=== PATIENT | female | born 1960 | race African-American/Black ===

== ENCOUNTER 2017-08-30 18:53 | Inpatient (IN) | payer OTHER ==
[~2017-08-30] VITALS: Ht 167.6 cm; Wt 67.0 kg
[2017-08-30 18:58] VITALS: Ht 167.6 cm; Wt 67.0 kg
[2017-08-30] MEDS ORDERED: SOD CHLORIDE 0.9% 1,000 ML IV STA ×2 (20:30→21:08)
[2017-08-30 20:54] VITALS: TEMP 97
[2017-08-30 21:07] LABS: BASOPHIL # 0.1 10^3/ul (0.0-0.1); BASOPHILS % 0.6 % (0.0-2.0); EOSINOPHILS # 0.5 10^3/ul (0.0-0.5); EOSINOPHILS % 4.6 % (0.0-7.0); HEMATOCRIT 33.2 % (37.0-47.0); HEMOGLOBIN 11.7 g/dl (12.0-16.0); LYMPHOCYTES # 3.1 10^3/ul (0.8-2.9); LYMPHOCYTES % 31.1 % (15.0-51.0); MEAN CORPUSCULAR HEMOGLOBIN 35.3 pg (29.0-33.0); MEAN CORPUSCULAR HGB CONC 35.2 g/dl (32.0-37.0); MEAN CORPUSCULAR VOLUME 100.3 fl (82.0-101.0); MEAN PLATELET VOLUME 9.6 fl (7.4-10.4); MONOCYTE # 0.4 10^3/ul (0.3-0.9); MONOCYTES % 4.5 % (0.0-11.0); NEUTROPHIL # 5.8 10^3/ul (1.6-7.5); NEUTROPHILS % 58.9 % (39.0-77.0); PLATELET COUNT 225 10^3/UL (140-415); RED BLOOD COUNT 3.31 10^6/ul (4.20-5.40); RED CELL DISTRIBUTION WIDTH 11.6 % (11.5-14.5); WHITE BLOOD COUNT 9.8 10^3/ul (4.8-10.8)
[2017-08-30 21:16] LABS: ADD UMIC YES; UR ASCORBIC ACID NEGATIVE (NEGATIVE); UR BACTERIA FEW /HPF (NONE SEEN); UR BILIRUBIN (Dip) NEGATIVE (NEGATIVE); UR BLOOD (Dip) NEGATIVE (NEGATIVE); UR CLARITY CLOUDY (CLEAR); UR COLOR YELLOW (YELLOW); UR GLUCOSE (Dip) NEGATIVE (NEGATIVE); UR KETONES (Dip) NEGATIVE (NEGATIVE); UR LEUKOCYTE ESTERASE (Dip) TRACE Leu/ul (NEGATIVE); UR MUCUS FEW /HPF (NONE SEEN); UR NITRITE (Dip) NEGATIVE (NEGATIVE); UR RBC 1 /HPF (0-5); UR SPECIFIC GRAVITY (Dip) 1.017 (1.003-1.030); UR SQUAMOUS EPITHELIAL CELL MODERATE /HPF (FEW); UR TOTAL PROTEIN (Dip) 1+ mg/dl (NEGATIVE); UR UROBILINOGEN (Dip) 1+ mg/dL (NEGATIVE)
[2017-08-30 21:23] LABS: ANION GAP 15 (8-16); BLOOD UREA NITROGEN 53 mg/dl (7-20); CALCIUM 9.8 mg/dl (8.4-10.2); CARBON DIOXIDE 21 mmol/L (21-31); CHLORIDE 108 mmol/L (97-110); CREATININE 2.55 mg/dl (0.44-1.00); GLUCOSE 89 mg/dl (70-220); POTASSIUM 3.6 mmol/L (3.5-5.1); SODIUM 140 mmol/L (135-144)
[2017-08-30 21:29] LABS: BARBITURATES Negative (NEGATIVE); BENZODIAZEPINES Negative (NEGATIVE); CANNABINOIDS Positive (NEGATIVE)
[2017-08-30 21:30] LABS: COCAINE Negative (NEGATIVE); OPIATES Negative (NEGATIVE)
--- NOTE | 2017-08-30 21:30 | RADRPT ---
PROCEDURE: Noncontrast CT Head. CLINICAL INDICATION: Possible stroke. Dizzy. TECHNIQUE: Noncontrast CT of the head was obtained. The administered radiation dose was CTDI vol = 44.58 mGy, DLP = 720.23 mGy-cm. One or more of the following dose reduction techniques were used: Au tomated exposure control, Adjustment of the mA and/or kV according to patient size, or Use of iterat valerio reconstruction technique. COMPARISON: There are no similar studies submitted for comparison. FINDINGS: There is no acute intracranial hemorrhage, midline shift, or mass effect. The cerebral hassan-white ma tter differentiation appears preserved. No extra-axial collection is seen. There is mild to moderate diffuse cerebral volume loss. There is Patchy low attenuation scattered in the periventricular, pradip p, and subcortical cerebral white matter is nonspecific, but suggestive of mild to moderate chronic microangiopathic change. The basal cisterns are preserved. There is intracranial calcific atheroscle rotic disease involving the internal carotid arteries bilaterally. There is mild diffuse cerebellar volume loss. The visualized paranasal sinuses and mastoid air cells are clear. No acute fracture or suspicious osseous lesion is identified. Cerumen, debris, and / or soft tissue is seen within the ex ternal auditory canals bilaterally. IMPRESSION: 1. No evidence of an acute intracranial process. 2. Mild to moderate diffuse cerebral and mild diffuse cerebellar volume loss. 3. Evidence of mild to moderate chronic microangiopathic cerebral white matter change. 4. Intracranial calcific atherosclerotic disease. RPTAT: [facility] Physician Constance Date Time Electronically viewed and signed by Physician Constance on 08/30/2017 21:30 LINETTE/
[2017-08-30 21:35] LABS: TROPONIN-I < 0.012 ng/ml (0.00-0.12)
[2017-08-30] MEDS ORDERED: LANS15CA5 PO (21:47)
[2017-08-30] MEDS ORDERED: HYDR12.58 PO (21:47)
[2017-08-30] MEDS ORDERED: CYCL5TAB PO (21:48)
[2017-08-30 21:55] LABS: INR 1.06; PROTIME 13.8 Sec (12.2-14.2); PT RATIO 1.1
[2017-08-30 21:56] LABS: PARTIAL THROMBOPLASTIN TIME 34.9 Sec (25.0-35.0)
[2017-08-30] MEDS ORDERED: MECLIZINE 12.5 MG TAB PO ONE (22:00)
--- NOTE | 2017-08-30 22:10 | RADRPT ---
PROCEDURE: XR Chest. CLINICAL INDICATION: Weakness. TECHNIQUE: Single frontal chest x-ray. COMPARISON: None. FINDINGS: The cardiomediastinal silhouette is unremarkable. There is no congestive heart failure.. No focal i nfiltrate is seen. There is no pleural effusion. There is no pneumothorax. The osseous structures are unremarkable. IMPRESSION: 1. No active disease. RPTAT: [facility] .Joe Melissa MD, Date Time Electronically viewed and signed by .Joe Melissa MD, MD on 08/30/2017 22:10 .K/
[2017-08-30] MEDS ORDERED: ONDANSETRON 4 MG INJ IV PRN (23:00)
[2017-08-30] MEDS ORDERED: ACETAMINOPHEN 325 MG TAB PO PRN (23:00)
--- NOTE | 2017-08-30 23:08 | ERA ---
ER Documentation Chief Complaint Date/Time DATE: 08/30/17 TIME: 23:05 Chief Complaint dizziness x 2 weeks, hypotensive HPI Patient is a 57-year-old female with hypertension who presents with dizziness. She said that for the past 2 weeks she is felt dizzy and felt like she was getting up too fast. It is worse when she stands up. She made a doctor's appointment. However this evening she got up and felt woozy and felt like the room was spinning and then fell to the ground. She denies passing out. She denies chest pain or headache. She said that she has had vomiting and diarrhea over the past 1 month. Upon review of old medical records this is the patient' s first visit to the emergency department. ROS All systems reviewed and are negative except as per history of present illness. Medications Home Meds Reported Medications Cyclobenzaprine Hcl* (Cyclobenzaprine Hcl*) 5 Mg Tablet, 7.5 MG PO Q12 Y for MUSCLE SPASMS, #60 TAB 08/30/17 Lansoprazole* (Lansoprazole*) 15 Mg Capsule.dr, 15 MG PO DAILY, CAP 08/30/17 Hydrochlorothiazide* (Hydrochlorothiazide*) 12.5 Mg Tablet, 12.5 MG PO DAILY, # 30 TAB 08/30/17 Allergies Allergies: Coded Allergies: No Known Allergy (Unverified , 08/30/17) PMhx/Soc History of Surgery: No Anesthesia Reaction: No Hx Neurological Disorder: No Hx Respiratory Disorders: No Hx Cardiac Disorders: Yes (HTN) Hx Psychiatric Problems: No Hx Miscellaneous Medical Probl: Yes (GERD) Hx Alcohol Use: No Hx Substance Use: No Hx Tobacco Use: Yes (6cig/day) Smoking Status: Light tobacco smoker FmHx Family History: No diabetes Physical Exam Vitals Vital Signs Date Time Temp Pulse Resp B/P Pulse Ox O2 Delivery O2 Flow Rate FiO2 08/30/17 20:54 97.0 62 22 76/37 100 Room Air 08/30/17 18:58 97.0 76 20 94/42 94 Physical Exam Const: No acute distress Head: Atraumatic Eyes: Normal Conjunctiva ENT: Normal External Ears, Nose and Mouth. Neck: Full range of motion..~ No meningismus. Resp: Clear to auscultation bilaterally Cardio: Regular rate and rhythm, no murmurs Abd: Soft, non tender, non distended. Normal bowel sounds Skin: No petechiae or rashes Back: No midline or flank tenderness Ext: No cyanosis, or edema Neur: Awake and alert, cranial nerves II through XII intact, strength is 5 out of 5 in all 4 extremities Psych: Normal Mood and Affect Result Diagram: 08/30/17204808/30/172048 Results 24 hrs Laboratory Tests Test 08/30/17 19:35 08/30/17 20:23 08/30/17 20:35 08/30/17 20:49 Urine Color YELLOW Urine Clarity CLOUDY Urine pH 5.0 Urine Specific [place] 1.017 Urine Ketones NEGATIVEmg/dL Urine Nitrite NEGATIVEmg/dL Urine Bilirubin NEGATIVEmg/dL Urine Urobilinogen 1+mg/dL Urine Leukocyte Esterase TRACELeu/ul Urine Microscopic RBC 1/HPF Urine Microscopic WBC 5/HPF Urine Squamous Epithelial Cells MODERATE/HPF Urine Bacteria FEW/HPF Urine Hyaline Casts FEW/HPF Urine Mucus FEW/HPF Urine Hemoglobin NEGATIVEmg/dL Urine Glucose NEGATIVEmg/dL Urine Total Protein 1+mg/dl Urine Opiates Screen Negative Urine Barbiturates Negative Urine Amphetamines Screen Negative Urine Benzodiazepines Screen Negative Urine Cocaine Screen Negative Urine Cannabinoids Positive Hemoglobin A1c 4.8% White Blood Count 9.810^3/ul Red Blood Count 3.3110^6/ul Hemoglobin 11.7g/dl Hematocrit 33.2% Mean Corpuscular Volume 100.3fl Mean Corpuscular Hemoglobin 35.3pg Mean Corpuscular Hemoglobin Concent 35.2g/dl Red Cell Distribution Width 11.6% Platelet Count 35067^3/UL Mean Platelet Volume 9.6fl Neutrophils % 58.9% Lymphocytes % 31.1% Monocytes % 4.5% Eosinophils % 4.6% Basophils % 0.6% Nucleated Red Blood Cells % 0.0/100WBC Neutrophils # 5.810^3/ul Lymphocytes # 3.110^3/ul Monocytes # 0.410^3/ul Eosinophils # 0.510^3/ul Basophils # 0.110^3/ul Nucleated Red Blood Cells # 0.010^3/ul Prothrombin Time 13.8Sec Prothrombin Time Ratio 1.1 INR International Normalized Ratio 1.06 Activated Partial Thromboplast Time 34.9Sec Sodium Level 140mmol/L Potassium Level 3.6mmol/L Chloride Level 108mmol/L Carbon Dioxide Level 21mmol/L Anion Gap 15 Blood Urea Nitrogen 53mg/dl Creatinine 2.55mg/dl Glucose Level 89mg/dl Calcium Level 9.8mg/dl Troponin I < 0.012ng/ml Current Medications Medications (Trade) Dose Ordered Sig/Ebony Route PRN Reason Start Time Stop Time Status Last Admin Dose Admin Sodium Chloride 1,000 ml @ 1,000 mls/hr Q1H STAT IV 08/30/17 20:30 08/30/17 21:29 DC 08/30/17 20:52 Sodium Chloride (NS) 1,000 ml @ 1,000 mls/hr Q1H STAT IV 08/30/17 21:08 08/30/17 22:07 DC 08/30/17 21:35 Meclizine HCl (Antivert) 25 mg ONCE ONCE PO 08/30/17 22:00 08/30/17 22:01 DC 08/30/17 22:19 Ondansetron HCl (Zofran Inj) 4 mg BRIDGE ORDER PRN IV NAUSEA AND/OR VOMITING 08/30/17 23:00 08/31/17 22:59 Acetaminophen (Tylenol Tab) 650 mg ER BRIDGE PRN PO MILD PAIN/FEVER 08/30/17 23:00 08/31/17 22:59 Procedures/MDM EKG read by me: Rate/Rhythm: Sinus bradycardia rate of 59 Intervals: Normal Impression: Sinus bradycardia without ischemia CT brain shows no acute process per radiology. Chest x-ray shows no pneumonia or pneumothorax per radiology. Smoking Cessation Therapy: Pt. was lectured for greater than 3 minutes on the health risks of continued smoking and the benefits of cessation. Patient is a 57-year-old female with hypertension who presents with dizziness and hypotension. She was given 2 L of fluid and her blood pressure has improved. However she was found to have acute renal failure with a BUN of 53 and a creatinine of 2.55. She said that she has no history of kidney failure and therefore I am concerned for acute renal failure. She likely has renal failure from dehydration from vomiting and diarrhea. She will need admission to the hospital for further evaluation for the cause of her renal failure. She has anemia with a hemoglobin of 11.7 but does not require transfusion. I doubt sepsis. I doubt stroke or acute coronary syndrome. Critical Care: Time: 35 minutes excluding all billable procedures. Treatments/Evaluations: Close monitoring and treatment of unstable vital signs, cardiorespiratory, and neurologic status, while maintaining tight balance of fluid, respiratory, and cardiac interventions. Departure Diagnosis: Primary Impression: Acute renal failure Qualified Code: N17.9 - Acute renal failure, unspecified acute renal failure type Additional Impressions: Dizziness Hypotension Qualified Code: I95.9 - Hypotension, unspecified hypotension type Condition: OSCAR Luu MD Aug 30, 2017 23:08
[2017-08-31] MEDS ORDERED: ACETAMINOPHEN 325 MG TAB PO PRN
[2017-08-31] MEDS ORDERED: ONDANSETRON 4 MG INJ IV PRN
[2017-08-31] MEDS ORDERED: NACL 0.9% 3 ML SYG IV SCH
[2017-08-31] MEDS: CEFTRIAXONE 1 GM/50 ML (PMX) 50 ML IVPB SCH (00:07)
[2017-08-31] MEDS: SOD CHLORIDE 0.9% 1,000 ML IV SCH ×3 (00:07→19:36)
[2017-08-31 00:45] VITALS: BP 94/44; PULSE 60; RESP 18
[2017-08-31 01:39] LABS: CHOL/HDL RATIO 4.8 RATIO
[2017-08-31] MEDS ORDERED: SOD CHLORIDE 0.9% 1,000 ML IV ONE (02:30)
--- NOTE | 2017-08-31 02:39 | HP ---
Date/Time of Note Date/Time of Note DATE: 08/31/17 TIME: 02:12 Assessment/Plan VTE Prophylaxis VTE Prophylaxis Intervention: SCD's Lines/Catheters IV [facility]from [facility] Peripheral IV Assessment/Plan Chief Complaint/Hosp Course This is a 57 year old female being admitted to the telemetry floor for: #1 Hypotension: secondary to dehydration from chronic diarrhea vs. unknown infection vs. other etiology. Currently afebrile. Elevated BUN/Cr likely Pre- renal in etiology. 2 liters of Normal saline received in the ED. On my exam patient has dry mucous membranes. I will give her an additional 1L of normal saline as well as keep her on NS@100cc and hour maintenance fluids. Will hold her HCTZ for now. She does have a UTI and chronic diarrhea, will monitor closely for continued hypotension and any fevers or other signs indicating possible sepsis. #2 Acute renal failure: No baseline renal function available, but patient denies any prior renal issues. Likely Pre-renal. Will provide iv fluid hydration as per #1. Check urine microscope, renal ultrasound, urine sodium, and will consult nephrology. Will hold HCTZ. #3 Chronic Diarrhea: Afebrile. This is chronic and patient has an appointment with a GI doctor as an outpatient on the 12th of this month. No fevers or elevated wbc count at this time. Nonetheless secondary to her hypotension, I will order some stool studies at this time. She does have pain above the umbilical area.. I will add on a lipase as well and a CMP.. Will add on a KUB for this morning. Consider CT of the abdomen with contrast if renal function returns to normal. Will keep her NPO except meds for now. Will also check a1c and thyroid. Urine drug screen was positive for marijuana, unknown if this could be contributing. #4 HTN: currently hypotensive, will hold HCTZ at this time. #5 Normocytic anemia: will check iron studies. Denies any bleeding. Will check fecal occult stool #6 UTI: ceftriaxone 1 gm IV q 24hrs #7 Dvt and GI prophylaxis. scds, acid pamela further treatment strategy will be implemented as per the clinical course. Problems: HPI/ROS Admit Date/Time Admit Date/Time Aug 30, 2017 at 22:38 Hx of Present Illness cc: dizzy Patient is a 57-year-old female with hypertension who presents with dizziness. She said that for the past few weeks she is felt dizzy and felt like she was getting up too fast. It is worse when she stands up. She made a doctor's appointment. However this evening she got up and felt woozy and felt like the room was spinning and then fell to the ground. She denies passing out and denies hitting her head. She denies chest pain or headache. She said that she has had vomiting and diarrhea over the past 1 month. She states she has had a chronic diarrhea for the past 2 years. Her primary care doctor did a stool study in february and found "a bug" and she took a set of antibiotics for a few weeks. She has an appointment with a GI doctor on 09/04 scheduled. Denies any fevers or shortness of breath. Denies any blood stool or vomitus. No recent travel. Denies any issues with dairy products. She does report acid reflux from citrus foods so she avoids them and she also doesn't eat spicy or fried foods. allergies: nkda meds: see miguel JOE Const: As per HPI Eyes : No pain discharge or redness or change in visual acuity ENT: No pain, sore throat, congestion, congestion, dysphagia or discharge Respiratory: No shortness of breath, cough, sputum, wheezing, or pleuritic pain Cardiovascular: No chest pain, palpitation, PND, or edema GI : As per HPI Genitourinary: Urinary frequency, urinary urgency Musculoskeletal: No joint pain, back pain, neck pain, restricted range of motion in neck or joints Skin: No rash, bruising or hives Neuro: As per HPI Endocrine: No polyuria, polydipsia, temperature intolerance Psych: No hallucination, depression, anxiety or suicidal ideation PMH/Family/Social Past Medical History Chronic diarrhea - unknown etiology, HTN, reflux Past Surgical History x 1 Past Surgical Hx: cholecystectomy Family History Significant Family History: hypertension (mom) Social History Alcohol Use: occasionally Smoking Status: Current every day smoker (5 cigs a day for 30 years) Drug Use: none Exam/Review of Systems Vital Signs Vitals Vital Signs Date Time Temp Pulse Resp B/P Pulse Ox O2 Delivery O2 Flow Rate FiO2 08/31/17 00:45 98.0 60 18 94/44 100 08/31/17 00:10 Room Air Exam Exam General: Patient is well-developed well-nourished The patient is alert oriented -3 lying comfortably in bed. HEENT: Dry mucous membranes, atraumatic, normocephalic. The pupils are equal, round and reactive. Extraocular motor are intact Neck: Supple with full range of motion. No rigidity or meningismus Chest: Nontender Lungs: Clear to auscultation bilaterally no crackles rales or wheezing Heart: Normal S1-S2, Regular rhythm and rate. No murmur, S3, or S4 Abdomen: Soft, nondistended, tender to palpation at the region above the umbilicus, normal bowel sounds, no rebound tenderness Extremities: Normal to inspection, no edema no cyanosis Neurologic: Normal mental status, speech normal, cranial nerves II through XII are intact, motor and sensory are intact, no focal weakness Additional Comments PROCEDURE: Noncontrast CT Head. CLINICAL INDICATION: Possible stroke. Dizzy. TECHNIQUE: Noncontrast CT of the head was obtained. The administered radiation dose was CTDI vol = 44.58 mGy, DLP = 720.23 mGy-cm. One or more of the following dose reduction techniques were used: Automated exposure control, Adjustment of the mA and/or kV according to patient size, or Use of iterative reconstruction technique. COMPARISON: There are no similar studies submitted for comparison. FINDINGS: There is no acute intracranial hemorrhage, midline shift, or mass effect. The cerebral hassan-white matter differentiation appears preserved. No extra-axial collection is seen. There is mild to moderate diffuse cerebral volume loss. There is Patchy low attenuation scattered in the periventricular, deep, and subcortical cerebral white matter is nonspecific, but suggestive of mild to moderate chronic microangiopathic change. The basal cisterns are preserved. There is intracranial calcific atherosclerotic disease involving the internal carotid arteries bilaterally. There is mild diffuse cerebellar volume loss. The visualized paranasal sinuses and mastoid air cells are clear. No acute fracture or suspicious osseous lesion is identified. Cerumen, debris, and / or soft tissue is seen within the external auditory canals bilaterally. IMPRESSION: 1. No evidence of an acute intracranial process. 2. Mild to moderate diffuse cerebral and mild diffuse cerebellar volume loss. 3. Evidence of mild to moderate chronic microangiopathic cerebral white matter change. 4. Intracranial calcific atherosclerotic disease. RPTAT: [facility] Physician Constance Date Time Electronically viewed and signed by Physician Constance on 08/30/2017 21: 30 RC/ CC: OSCAR FERNANDO MD PROCEDURE: XR Chest. CLINICAL INDICATION: Weakness. TECHNIQUE: Single frontal chest x-ray. COMPARISON: None. FINDINGS: The cardiomediastinal silhouette is unremarkable. There is no congestive heart failure.. No focal infiltrate is seen. There is no pleural effusion. There is no pneumothorax. The osseous structures are unremarkable. IMPRESSION: 1. No active disease. RPTAT: [facility] .Joe Melissa MD, Date Time Electronically viewed and signed by .Joe Melissa MD, on 08/30/2017 22:10 .K/ CC: OSCAR FERNANDO MD Labs Result Diagram: 08/30/17204808/30/172048 Medications Medications Current Medications Sodium Chloride (NS) 1,000 ml @ 100 mls/hr Q10H IV Last administered on 00:07; Admin Dose 100 MLS/HR; Start 08/30/17 at 23:36 Ondansetron HCl (Zofran Inj) 4 mg Q6H PRN IV NAUSEA AND/OR VOMITING; Start 08/31/17 at 00:00 Acetaminophen (Tylenol Tab) 650 mg Q6H PRN PO PAIN LEVEL 1-3 OR FEVER; Start 08/31/17 at 00:00 Famotidine 20 mg 20 mg DAILY PO ; Start 08/31/17 at 09:00 Ceftriaxone Sodium (Rocephin) 50 ml @ 100 mls/hr Q24H IVPB Last administered on 08/31/17 00:07; Admin Dose 100 MLS/HR; Start 08/31/17 at 00:00 Influenza Virus Vaccine 0.5 ml 0.5 ml ONCE ONCE IM* ; Start 09/01/17 at 09:00; Stop 09/01/17 at 09:01 Sodium Chloride (NS) 1,000 ml @ 1,000 mls/hr Q1H ONCE IV ; Start 08/31/17 at 02 :30; Stop 08/31/17 at 03:29; Status CONCEPCION DELVALLE Aug 31, 2017 02:25
[2017-08-31 04:00] VITALS: BP 95/42; PULSE 62
[2017-08-31 05:40] LABS: BASOPHILS % 0.5 % (0.0-2.0); EOSINOPHILS # 0.4 10^3/ul (0.0-0.5); EOSINOPHILS % 5.6 % (0.0-7.0); HEMATOCRIT 26.1 % (37.0-47.0); HEMOGLOBIN 9.3 g/dl (12.0-16.0); LYMPHOCYTES # 2.2 10^3/ul (0.8-2.9); LYMPHOCYTES % 35.5 % (15.0-51.0); MEAN CORPUSCULAR HEMOGLOBIN 35.4 pg (29.0-33.0); MEAN CORPUSCULAR HGB CONC 35.6 g/dl (32.0-37.0); MEAN CORPUSCULAR VOLUME 99.2 fl (82.0-101.0); MEAN PLATELET VOLUME 9.7 fl (7.4-10.4); MONOCYTE # 0.2 10^3/ul (0.3-0.9); MONOCYTES % 3.9 % (0.0-11.0); NEUTROPHIL # 3.4 10^3/ul (1.6-7.5); NEUTROPHILS % 54.2 % (39.0-77.0); PLATELET COUNT 194 10^3/UL (140-415); RED BLOOD COUNT 2.63 10^6/ul (4.20-5.40); RED CELL DISTRIBUTION WIDTH 11.7 % (11.5-14.5); WHITE BLOOD COUNT 6.2 10^3/ul (4.8-10.8)
[2017-08-31 06:06] LABS: ALBUMIN 2.8 g/dl (3.3-4.9); BILIRUBIN,INDIRECT 0.2 mg/dl (0-1.1); BILIRUBIN,TOTAL 0.2 mg/dl (0.2-1.3); CREATININE 1.42 mg/dl (0.44-1.00); MAGNESIUM 1.4 mg/dl (1.7-2.5); POTASSIUM 3.6 mmol/L (3.5-5.1); TOTAL PROTEIN 5.6 g/dl (6.1-8.1)
[2017-08-31 06:08] LABS: IRON 64 ug/dl (35-150)
[2017-08-31 06:17] LABS: TOTAL IRON BINDING CAPACITY 262 ug/dl (241-421)
--- NOTE | 2017-08-31 08:55 | RADRPT ---
PROCEDURE: Renal US. CLINICAL INDICATION: Renal failure TECHNIQUE: Multiple sonographic images of the kidneys were obtained. COMPARISON: No prior studies are available for comparison. FINDINGS: The kidneys are well visualized. The right kidney measures 10.7 cm. The left kidney measures 10.6 cm . Normal renal cortical echogenicity. No evidence of shadowing renal calculi. No hydronephrosis. No rmal appearance of the urinary bladder. IMPRESSION: Normal renal ultrasound. RPTAT:[facility] Physician Cornelius Date Time Electronically viewed and signed by Physician Cornelius on 08/31/2017 08:55 /
--- NOTE | 2017-08-31 08:57 | RADRPT ---
PROCEDURE: XR Abdomen. CLINICAL INDICATION: Abdominal pain. Diarrhea. TECHNIQUE: AP abdomen x-ray. COMPARISON: None. FINDINGS: Lung bases are clear. The bowel gas pattern is normal. There is no evidence of obstruction. Normal colonic stool burden. There are no abnormal calcifications overlying the renal shadows. Degenerativ e changes of the spine. Round 4.1 cm calcification over the left pelvis likely representing a calcif ied fibroid. IMPRESSION: No acute abdominal radiograph abnormality. Probable 4.1 cm calcified fibroid over the left pelvis. RPTAT:AA[facility] Physician Cornelius Date Time Electronically viewed and signed by Physician Cornelius on 08/31/2017 08:57 /
[2017-08-31] MEDS: FAMOTIDINE 20 MG TAB PO SCH (09:02)
[2017-08-31] MEDS: NICOTINE (14 MG/24 HR) PATCH TRANSDERM SCH (09:02)
[2017-08-31 10:45] VITALS: BP 106/56; RESP 20
--- NOTE | 2017-08-31 10:47 | CONS ---
Date/Time of Note Date/Time of Note DATE: 08/31/17 TIME: 10:42 Consultation Date/Type/Reason Admit Date/Time Aug 30, 2017 at 22:38 Date of Consultation: Aug 31, 2017 Type of Consultation: nephrology Hx of Present Illness cc: dizzy Patient is a 57-year-old female with hypertension who presents with dizziness. She said that for the past few weeks she is felt dizzy and felt like she was getting up too fast. It is worse when she stands up. She made a doctor's appointment. However this evening she got up and felt woozy and felt like the room was spinning and then fell to the ground. She denies passing out and denies hitting her head. She denies chest pain or headache. She said that she has had vomiting and diarrhea over the past 1 month. She states she has had a chronic diarrhea for the past 3 years. Her primary care doctor did a stool study in february and found "a bug" and she took a set of antibiotics for a few weeks. She has an appointment with a GI doctor on 09/04 scheduled. Denies any fevers or shortness of breath. Denies any blood stool or vomitus. No recent travel. Denies any issues with dairy products. She does report acid reflux from citrus foods so she avoids them and she also doesn't eat spicy or fried foods. Her serum chemistry showed arf which is improving with ivf UA was remarkable for pyuria for which she is on abx has good uop since admission to the hospital denies any previous renal issues allergies: nkda meds: see miguel ROS Const: As per HPI Eyes : No pain discharge or redness or change in visual acuity ENT: No pain, sore throat, congestion, congestion, dysphagia or discharge Respiratory: No shortness of breath, cough, sputum, wheezing, or pleuritic pain Cardiovascular: No chest pain, palpitation, PND, or edema GI : As per HPI Genitourinary: Urinary frequency, urinary urgency Musculoskeletal: No joint pain, back pain, neck pain, restricted range of motion in neck or joints Skin: No rash, bruising or hives Neuro: As per HPI Endocrine: No polyuria, polydipsia, temperature intolerance Psych: No hallucination, depression, anxiety or suicidal ideation PMH/Family/Social Past Medical History Chronic diarrhea - unknown etiology, HTN, reflux Past Surgical History x 1 Past Surgical Hx: cholecystectomy Family History Significant Family History: hypertension (mom) Social History Alcohol Use: occasionally Smoking Status: Current every day smoker (5 cigs a day for 30 years) Drug Use: none Exam/Review of Systems General: Patient is well-developed well-nourished The patient is alert oriented -3 lying comfortably in bed. HEENT: Dry mucous membranes, atraumatic, normocephalic. The pupils are equal, round and reactive. Extraocular motor are intact Neck: Supple with full range of motion. No rigidity or meningismus Chest: Nontender Lungs: Clear to auscultation bilaterally no crackles rales or wheezing Heart: Normal S1-S2, Regular rhythm and rate. No murmur, S3, or S4 Abdomen: Soft, nondistended, tender to palpation at the region above the umbilicus, normal bowel sounds, no rebound tenderness Extremities: Normal to inspection, no edema no cyanosis Neurologic: Normal mental status, speech normal, cranial nerves II through XII are intact, motor and sensory are intact, no focal weakness Additional Comments PROCEDURE: Noncontrast CT Head. CLINICAL INDICATION: Possible stroke. Dizzy. TECHNIQUE: Noncontrast CT of the head was obtained. The administered radiation dose was CTDI vol = 44.58 mGy, DLP = 720.23 mGy-cm. One or more of the following dose reduction techniques were used: Automated exposure control, Adjustment of the mA and/or kV according to patient size, or Use of iterative reconstruction technique. COMPARISON: There are no similar studies submitted for comparison. FINDINGS: There is no acute intracranial hemorrhage, midline shift, or mass effect. The cerebral hassan-white matter differentiation appears preserved. No extra-axial collection is seen. There is mild to moderate diffuse cerebral volume loss. There is Patchy low attenuation scattered in the periventricular, deep, and subcortical cerebral white matter is nonspecific, but suggestive of mild to moderate chronic microangiopathic change. The basal cisterns are preserved. There is intracranial calcific atherosclerotic disease involving the internal carotid arteries bilaterally. There is mild diffuse cerebellar volume loss. The visualized paranasal sinuses and mastoid air cells are clear. No acute fracture or suspicious osseous lesion is identified. Cerumen, debris, and / or soft tissue is seen within the external auditory canals bilaterally. IMPRESSION: 1. No evidence of an acute intracranial process. 2. Mild to moderate diffuse cerebral and mild diffuse cerebellar volume loss. 3. Evidence of mild to moderate chronic microangiopathic cerebral white matter change. 4. Intracranial calcific atherosclerotic disease. PROCEDURE: XR Chest. CLINICAL INDICATION: Weakness. TECHNIQUE: Single frontal chest x-ray. COMPARISON: None. FINDINGS: The cardiomediastinal silhouette is unremarkable. There is no congestive heart failure.. No focal infiltrate is seen. There is no pleural effusion. There is no pneumothorax. The osseous structures are unremarkable. IMPRESSION: 1. No active disease. This is a 57 year old female being admitted to the telemetry floor for: #1 Acute renal failure: No baseline renal function available, but patient denies any prior renal issues. most likely due to intravascular volume depletion due to hctz and diarrhea, She has good uop with ivf. will continue. Some proteinuria noted on her UA however she has uti and therefore urine studies are not reliable. will repeat. will optimize her intravascular volume status by infusion isotonic saline. #2 Hypotension: secondary to dehydration from chronic diarrhea vs. UTI. #3 Chronic Diarrhea #4 HTN: currently hypotensive, will hold HCTZ at this time. #5 Normocytic anemia: will check iron studies. Denies any bleeding. Will check fecal occult stool #6 UTI: ceftriaxone 1 gm IV q 24hrs #7 Dvt and GI prophylaxis. scds, acid pamela Past Surgical History Past Surgical Hx: cholecystectomy Social History Alcohol Use: occasionally Smoking Status: Current every day smoker (5 cigs a day for 30 years) Drug Use: none Exam/Review of Systems Vital Signs Vitals Vital Signs Date Time Temp Pulse Resp B/P Pulse Ox O2 Delivery O2 Flow Rate FiO2 08/31/17 04:00 62 95/42 08/31/17 00:45 98.0 18 100 08/31/17 00:10 Room Air Intake and Output 08/30/17 08/30/17 08/31/17 15:00 23:00 07:00 Intake Total 1450 ml Output Total 750 ml Balance 700 ml Results Result Diagram: 08/31/17 0432 08/31/17 043 Results 24 hrs Laboratory Tests Test 08/30/17 19:35 08/30/17 20:23 08/30/17 20:35 08/30/17 20:49 Urine Color YELLOW Urine Clarity CLOUDY A Urine pH 5.0 Urine Specific [place] 1.017 Urine Ketones NEGATIVE Urine Nitrite NEGATIVE Urine Bilirubin NEGATIVE Urine Urobilinogen 1+ H Urine Leukocyte Esterase TRACE A Urine Microscopic RBC 1 Urine Microscopic WBC 5 Urine Squamous Epithelial Cells MODERATE Urine Bacteria FEW A Urine Hyaline Casts FEW A Urine Mucus FEW A Urine Hemoglobin NEGATIVE Urine Glucose NEGATIVE Urine Total Protein 1+ H Urine Opiates Screen Negative Urine Barbiturates Negative Urine Amphetamines Screen Negative Urine Benzodiazepines Screen Negative Urine Cocaine Screen Negative Urine Cannabinoids Positive Hemoglobin A1c 4.8 White Blood Count 9.8 Red Blood Count 3.31 L Hemoglobin 11.7 L Hematocrit 33.2 L Mean Corpuscular Volume 100.3 Mean Corpuscular Hemoglobin 35.3 H Mean Corpuscular Hemoglobin Concent 35.2 Red Cell Distribution Width 11.6 Platelet Count 225 Mean Platelet Volume 9.6 Neutrophils % 58.9 Lymphocytes % 31.1 Monocytes % 4.5 Eosinophils % 4.6 Basophils % 0.6 Nucleated Red Blood Cells % 0.0 Neutrophils # 5.8 Lymphocytes # 3.1 H Monocytes # 0.4 Eosinophils # 0.5 Basophils # 0.1 Nucleated Red Blood Cells # 0.0 Prothrombin Time 13.8 Prothrombin Time Ratio 1.1 INR International Normalized Ratio 1.06 Activated Partial Thromboplast Time 34.9 Sodium Level 140 Potassium Level 3.6 Chloride Level 108 Carbon Dioxide Level 21 Anion Gap 15 Blood Urea Nitrogen 53 H Creatinine 2.55 H Glucose Level 89 Calcium Level 9.8 Troponin I < 0.012 Test 08/31/17 00:58 08/31/17 02:30 08/31/17 04:32 08/31/17 04:33 Hemoglobin A1c 4.8 Triglycerides Level 159 H Cholesterol Level 137 LDL Cholesterol, Calculated 77 HDL Cholesterol 28 L Cholesterol/HDL Ratio 4.8 Thyroid Stimulating Hormone (TSH) 3.000 2.620 Urine Osmolality 465 Urine Random Sodium 93 H Urine Total Protein 18.0 H White Blood Count 6.2 # Red Blood Count 2.63 #L Hemoglobin 9.3 #L Hematocrit 26.1 #L Mean Corpuscular Volume 99.2 Mean Corpuscular Hemoglobin 35.4 H Mean Corpuscular Hemoglobin Concent 35.6 Red Cell Distribution Width 11.7 Platelet Count 194 Mean Platelet Volume 9.7 Neutrophils % 54.2 Lymphocytes % 35.5 Monocytes % 3.9 Eosinophils % 5.6 Basophils % 0.5 Nucleated Red Blood Cells % 0.0 Neutrophils # 3.4 Lymphocytes # 2.2 Monocytes # 0.2 L Eosinophils # 0.4 Basophils # 0.0 Nucleated Red Blood Cells # 0.0 Sodium Level 142 Potassium Level 3.6 Chloride Level 117 H Carbon Dioxide Level 22 Anion Gap 7 #L Blood Urea Nitrogen 41 #H Creatinine 1.42 #H Glucose Level 92 Calcium Level 8.0 L Magnesium Level 1.4 L Iron Level 64 Total Iron Binding Capacity 262 Percent Iron Saturation 24 Total Bilirubin 0.2 Direct Bilirubin 0.00 Indirect Bilirubin 0.2 Aspartate Amino Transf (AST/SGOT) 14 L Alanine Aminotransferase (ALT/SGPT) 27 Alkaline Phosphatase 34 L Total Protein 5.6 L Albumin 2.8 L Globulin 2.80 Albumin/Globulin Ratio 1.00 Lipase 191 Lactic Acid Level 0.8 Medications Medications Current Medications Sodium Chloride (NS) 1,000 ml @ 100 mls/hr Q10H IV Last administered on 00:07; Admin Dose 100 MLS/HR; Start 08/30/17 at 23:36 Ondansetron HCl (Zofran Inj) 4 mg Q6H PRN IV NAUSEA AND/OR VOMITING; Start 08/31/17 at 00:00 Acetaminophen (Tylenol Tab) 650 mg Q6H PRN PO PAIN LEVEL 1-3 OR FEVER; Start 08/31/17 at 00:00 Famotidine 20 mg 20 mg DAILY PO Last administered on 08/31/17 09:02; Admin Dose 20 MG; Start 08/31/17 at 09:00 Ceftriaxone Sodium (Rocephin) 50 ml @ 100 mls/hr Q24H IVPB Last administered on 08/31/17 00:07; Admin Dose 100 MLS/HR; Start 08/31/17 at 00:00 Influenza Virus Vaccine (Fluzone) 0.5 ml ONCE ONCE IM* ; Start 09/01/17 at 09:00 ; Stop 09/01/17 at 09:01 Nicotine (Nicoderm 14 Mg/ 24hr) 1 patch DAILY TRANSDERM Last administered on 09:02; Admin Dose 1 PATCH; Start 08/31/17 at 09:00 DALLAS CARTER DO Aug 31, 2017 10:47
--- NOTE | 2017-08-31 12:12 | CONS ---
Date/Time of Note Date/Time of Note DATE: 08/31/17 TIME: 12:04 Assessment/Plan Assessment/Plan Additional Assessment/Plan Assessment: * Chronic unexplained diarrhea * Chronic dyspepsia/nausea and vomiting * Severe dehydration * Acute renal failure/prerenal azotemia * Hypertension * Moderate anemia likely multifactorial * Rule out GI bleeding/no overt GI bleeding Plan: * Continue present regimen * Stool studies * Prepare for endoscopy and colonoscopy on Saturday. Patient informed of procedures including risks, benefits and alternatives. Agreeable to proceed. Consultation Date/Type/Reason Admit Date/Time Aug 30, 2017 at 22:38 Date of Consultation: Aug 31, 2017 Type of Consultation: GI Reason for Consultation Chronic diarrhea Hx of Present Illness 57-year-old female hospitalized with dehydration, acute renal failure, chronic diarrhea lasting more than a year. The patient states that her diarrhea has been worked up as an outpatient with stool studies and that she was told to have an infection in the stomach for which she took antibiotics for 2 weeks, this resulted in no resolution of her diarrhea or nausea and vomiting that had been present as well. Patient scheduled to see a dye boarding machine operator as an outpatient in the next few days. At this point the patient is receiving IV fluids and appears more comfortable after hydration. The diarrhea is been persistent consisting of fat 3-5 bowel movements a day, liquid, no gross bleeding present. No fever, chills or diaphoresis. No significant weight loss. There is also associated nausea and vomiting. There is pyrosis and regurgitation. The patient recalls having colonoscopy in early 1999 and her recollection is that the examination was normal. At this point the patient appears comfortable and stable she will be prepared for colonoscopic and endoscopic examination on Saturday. The procedures were explained to the patient in detail including risks, benefits and alternatives. She is agreeable to proceed. Constitutional: No chills, No diaphoresis, No febrile Eyes: no complaints ENT: no complaints Respiratory: No cough, No pain, No pleuritic pain, No shortness of breath, No sputum, No wheezing Cardiovascular: lightheadedness, No chest pain, No edema, No palpitations Gastrointestinal: other (See HPI) Genitourinary: No dysuria, No flank pain, No hematuria Musculoskeletal: no complaints Skin: No skin lesions Neurologic: no complaints Endocrine: no complaints Lymphatic: no complaints Psychological: no complaints Immunologic: no complaints Past Medical History Medical History: hypertension Past Surgical History Past Surgical Hx: cholecystectomy Family History Significant Family History: no pertinent family hx Social History Alcohol Use: occasionally Smoking Status: Current every day smoker (5 cigs a day for 30 years) Drug Use: none Exam/Review of Systems Vital Signs Vitals Vital Signs Date Time Temp Pulse Resp B/P Pulse Ox O2 Delivery O2 Flow Rate FiO2 08/31/17 10:45 97.4 50 20 106/56 100 08/31/17 00:10 Room Air Intake and Output 08/30/17 08/30/17 08/31/17 14:59 22:59 06:59 Intake Total 1450 ml Output Total 750 ml Balance 700 ml Exam PHYSICAL EXAMINATION: GENERAL: Well developed, well nourished, alert & oriented x 3, in no acute distress SKIN: No lesions, no stigmata chronic liver disease, no evidence of bleeding diathesis LYMPHATIC: No palpable lymphadenopathy. HEAD: Normocephalic, atraumatic, no tenderness. EYES: Pupils equal reactive to light and accommodation, full extraocular movements, sclera clear, non-icteric, no discharge. EARS/NOSE AND THROAT: Ears normal, nose normal, oropharynx normal, oral membranes well hydrated without lesions. NECK: Supple, no masses, thyroid normal, JVP within normal limits, carotids normal without bruits. CHEST: Inspection within normal limits. CARDIOVASCULAR: Heart: Regular rate and rhythm, no murmurs, gallops or rubs. Peripheral pulses present within normal limits, no cyanosis, clubbing or edemas. No pulsatile abdominal mass RESPIRATORY: Lungs clear to auscultation and percussion, no wheezing, no rubs GASTROINTESTINAL AND LIVER: Abdomen: Soft, mild diffuse tenderness, non- distended, no hernias, no masses, no organomegaly, no ascites, no guarding, no rebound tenderness, normoactive bowel sounds. Rectal: Deferred. GENITOURINARY: [Female genitalia within normal limits.] EXTREMITIES: No cyanosis, clubbing or edema. Results Result Diagram: 08/31/1743108/31/17 043 Results 24 hrs Laboratory Tests Test 08/30/17 19:35 08/30/17 20:23 08/30/17 20:35 08/30/17 20:49 Urine Color YELLOW Urine Clarity CLOUDY A Urine pH 5.0 Urine Specific [place] 1.017 Urine Ketones NEGATIVE Urine Nitrite NEGATIVE Urine Bilirubin NEGATIVE Urine Urobilinogen 1+ H Urine Leukocyte Esterase TRACE A Urine Microscopic RBC 1 Urine Microscopic WBC 5 Urine Squamous Epithelial Cells MODERATE Urine Bacteria FEW A Urine Hyaline Casts FEW A Urine Mucus FEW A Urine Hemoglobin NEGATIVE Urine Glucose NEGATIVE Urine Total Protein 1+ H Urine Opiates Screen Negative Urine Barbiturates Negative Urine Amphetamines Screen Negative Urine Benzodiazepines Screen Negative Urine Cocaine Screen Negative Urine Cannabinoids Positive Hemoglobin A1c 4.8 White Blood Count 9.8 Red Blood Count 3.31 L Hemoglobin 11.7 L Hematocrit 33.2 L Mean Corpuscular Volume 100.3 Mean Corpuscular Hemoglobin 35.3 H Mean Corpuscular Hemoglobin Concent 35.2 Red Cell Distribution Width 11.6 Platelet Count 225 Mean Platelet Volume 9.6 Neutrophils % 58.9 Lymphocytes % 31.1 Monocytes % 4.5 Eosinophils % 4.6 Basophils % 0.6 Nucleated Red Blood Cells % 0.0 Neutrophils # 5.8 Lymphocytes # 3.1 H Monocytes # 0.4 Eosinophils # 0.5 Basophils # 0.1 Nucleated Red Blood Cells # 0.0 Prothrombin Time 13.8 Prothrombin Time Ratio 1.1 INR International Normalized Ratio 1.06 Activated Partial Thromboplast Time 34.9 Sodium Level 140 Potassium Level 3.6 Chloride Level 108 Carbon Dioxide Level 21 Anion Gap 15 Blood Urea Nitrogen 53 H Creatinine 2.55 H Glucose Level 89 Calcium Level 9.8 Troponin I < 0.012 Test 08/31/17 00:58 08/31/17 02:30 08/31/17 04:32 08/31/17 04:33 Hemoglobin A1c 4.8 Triglycerides Level 159 H Cholesterol Level 137 LDL Cholesterol, Calculated 77 HDL Cholesterol 28 L Cholesterol/HDL Ratio 4.8 Thyroid Stimulating Hormone (TSH) 3.000 2.620 Urine Osmolality 465 Urine Random Sodium 93 H Urine Total Protein 18.0 H White Blood Count 6.2 # Red Blood Count 2.63 #L Hemoglobin 9.3 #L Hematocrit 26.1 #L Mean Corpuscular Volume 99.2 Mean Corpuscular Hemoglobin 35.4 H Mean Corpuscular Hemoglobin Concent 35.6 Red Cell Distribution Width 11.7 Platelet Count 194 Mean Platelet Volume 9.7 Neutrophils % 54.2 Lymphocytes % 35.5 Monocytes % 3.9 Eosinophils % 5.6 Basophils % 0.5 Nucleated Red Blood Cells % 0.0 Neutrophils # 3.4 Lymphocytes # 2.2 Monocytes # 0.2 L Eosinophils # 0.4 Basophils # 0.0 Nucleated Red Blood Cells # 0.0 Sodium Level 142 Potassium Level 3.6 Chloride Level 117 H Carbon Dioxide Level 22 Anion Gap 7 #L Blood Urea Nitrogen 41 #H Creatinine 1.42 #H Glucose Level 92 Calcium Level 8.0 L Magnesium Level 1.4 L Iron Level 64 Total Iron Binding Capacity 262 Percent Iron Saturation 24 Total Bilirubin 0.2 Direct Bilirubin 0.00 Indirect Bilirubin 0.2 Aspartate Amino Transf (AST/SGOT) 14 L Alanine Aminotransferase (ALT/SGPT) 27 Alkaline Phosphatase 34 L Total Protein 5.6 L Albumin 2.8 L Globulin 2.80 Albumin/Globulin Ratio 1.00 Lipase 191 Lactic Acid Level 0.8 Medications Medications Current Medications Sodium Chloride (NS) 1,000 ml @ 100 mls/hr Q10H IV Last administered on 00:07; Admin Dose 100 MLS/HR; Start 08/30/17 at 23:36 Ondansetron HCl (Zofran Inj) 4 mg Q6H PRN IV NAUSEA AND/OR VOMITING; Start 08/31/17 at 00:00 Acetaminophen (Tylenol Tab) 650 mg Q6H PRN PO PAIN LEVEL 1-3 OR FEVER; Start 08/31/17 at 00:00 Famotidine 20 mg 20 mg DAILY PO Last administered on 08/31/17 09:02; Admin Dose 20 MG; Start 08/31/17 at 09:00 Ceftriaxone Sodium (Rocephin) 50 ml @ 100 mls/hr Q24H IVPB Last administered on 08/31/17 00:07; Admin Dose 100 MLS/HR; Start 08/31/17 at 00:00 Influenza Virus Vaccine (Fluzone) 0.5 ml ONCE ONCE IM* ; Start 09/01/17 at 09:00 ; Stop 09/01/17 at 09:01 Nicotine 1 patch 1 patch DAILY TRANSDERM Last administered on 08/31/17 09:02; Admin Dose 1 PATCH; Start 08/31/17 at 09:00 Magnesium Sulfate 3 gm/Sodium Chloride 106 ml @ 35.333 mls/ hr ONCE ONCE IVPB ; Start 08/31/17 at 13:00; Stop 08/31/17 at 15:59 Metronidazole (Flagyl 500 Mg (Pmx)) 100 ml @ 100 mls/hr Q8 IVPB ; Start at 14:00 Copies To: CC: CHUCK MORALES MD, MORDO MD Aug 31, 2017 12:11
[2017-08-31] MEDS ORDERED: MAGNESIUM SULFATE 3 GM in SOD CHLORIDE 0.9% 100 ML IVPB ONE (13:00)
[2017-08-31] MEDS: metroNIDAZOLE 500 MG/NS (PMX) 100 ML IVPB SCH ×2 (13:44→21:49)
[2017-08-31 14:30] VITALS: BP 103/56; PULSE 61; RESP 16
[2017-08-31 19:40] VITALS: BP 102/59; RESP 18
[2017-09-01] MEDS: CEFTRIAXONE 1 GM/50 ML (PMX) 50 ML IVPB SCH (01:06)
[2017-09-01 01:34] VITALS: BP 104/53; RESP 18
[2017-09-01] MEDS: metroNIDAZOLE 500 MG/NS (PMX) 100 ML IVPB SCH (05:19)
[2017-09-01 05:33] LABS: BASOPHILS % 0.7 % (0.0-2.0); EOSINOPHILS # 0.4 10^3/ul (0.0-0.5); EOSINOPHILS % 7.3 % (0.0-7.0); HEMOGLOBIN 9.7 g/dl (12.0-16.0); LYMPHOCYTES # 2.2 10^3/ul (0.8-2.9); LYMPHOCYTES % 37.8 % (15.0-51.0); MEAN CORPUSCULAR HEMOGLOBIN 35.1 pg (29.0-33.0); MEAN CORPUSCULAR HGB CONC 34.6 g/dl (32.0-37.0); MEAN CORPUSCULAR VOLUME 101.4 fl (82.0-101.0); MEAN PLATELET VOLUME 9.9 fl (7.4-10.4); MONOCYTE # 0.3 10^3/ul (0.3-0.9); MONOCYTES % 4.3 % (0.0-11.0); NEUTROPHIL # 2.9 10^3/ul (1.6-7.5); NEUTROPHILS % 49.7 % (39.0-77.0); PLATELET COUNT 215 10^3/UL (140-415); RED BLOOD COUNT 2.76 10^6/ul (4.20-5.40); RED CELL DISTRIBUTION WIDTH 11.7 % (11.5-14.5); WHITE BLOOD COUNT 5.8 10^3/ul (4.8-10.8)
[2017-09-01 05:49] LABS: CALCIUM 8.4 mg/dl (8.4-10.2); CREATININE 0.79 mg/dl (0.44-1.00); POTASSIUM 4.1 mmol/L (3.5-5.1)
[2017-09-01 05:50] LABS: MAGNESIUM 1.8 mg/dl (1.7-2.5); PHOSPHORUS 2.5 mg/dl (2.5-4.9)
[2017-09-01] MEDS: SOD CHLORIDE 0.9% 1,000 ML IV SCH ×2 (06:15→18:10)
[2017-09-01 08:09] VITALS: BP 109/53; RESP 20
[2017-09-01] MEDS ORDERED: INFLUENZA VIRUS VACCINE 0.5 ML (DISPENSING) IM* ONE (09:00)
[2017-09-01] MEDS: NICOTINE (14 MG/24 HR) PATCH TRANSDERM SCH (09:18)
[2017-09-01] MEDS: FAMOTIDINE 20 MG TAB PO SCH (09:18)
--- NOTE | 2017-09-01 10:52 | PN ---
Date/Time of Note Date/Time of Note DATE: 09/01/17 TIME: 10:49 Assessment/Plan VTE Prophylaxis VTE Prophylaxis Intervention: other Lines/Catheters IV Catheter Type (from Nrs): Peripheral IV Assessment/Plan Chief Complaint/Hosp Course nephrology follow up all noted good uop since admission ARF is resolving BP at target off HCTZ no nausea, vomiting,rash, hematuria or melena General: Patient is well-developed well-nourished The patient is alert oriented -3 lying comfortably in bed. HEENT: Dry mucous membranes, atraumatic, normocephalic. The pupils are equal, round and reactive. Extraocular motor are intact Neck: Supple with full range of motion. No rigidity or meningismus Chest: Nontender Lungs: Clear to auscultation bilaterally no crackles rales or wheezing Heart: Normal S1-S2, Regular rhythm and rate. No murmur, S3, or S4 Abdomen: Soft, nondistended, tender to palpation at the region above the umbilicus, normal bowel sounds, no rebound tenderness Extremities: Normal to inspection, no edema no cyanosis Neurologic: Normal mental status, speech normal, cranial nerves II through XII are intact, motor and sensory are intact, no focal weakness This is a 57 year old female being admitted to the telemetry floor for: #1 Acute renal failure: due to intravascular volume depletion due to hctz and diarrhea, She has good uop with ivf. will continue. Some proteinuria noted on her UA however she has uti and therefore urine studies are not reliable. ARF is resolving. continue volume expansion. no need to resume HCTZ #2 Hypotension: secondary to dehydration from chronic diarrhea vs. UTI. #3 Chronic Diarrhea #4 HTN: currently hypotensive, will hold HCTZ at this time. #5 Normocytic anemia: will check iron studies. Denies any bleeding. Will check fecal occult stool #6 UTI: ceftriaxone 1 gm IV q 24hrs #7 Dvt and GI prophylaxis. scds, acid pamela Problems: Exam/Review of Systems Vital Signs Vitals Vital Signs Date Time Temp Pulse Resp B/P Pulse Ox O2 Delivery O2 Flow Rate FiO2 09/01/17 08:09 98.0 65 20 109/53 100 08/31/17 14:30 Room Air Intake and Output 08/31/17 08/31/17 09/01/17 15:00 23:00 07:00 Intake Total 700 ml 1206 ml 1750 ml Output Total 1200 ml 900 ml Balance 700 ml 6 ml 850 ml Results Result Diagram: 09/01/17 0434 09/01/17 0434 Results 24 hrs Laboratory Tests Test 08/31/17 12:00 08/31/17 13:30 08/31/17 14:00 09/01/17 04:34 Stool Occult Blood POSITIVE Urine Random Creatinine 51.54 Urine Total Protein 12.0 H White Blood Count 5.8 Red Blood Count 2.76 L Hemoglobin 9.7 L Hematocrit 28.0 L Mean Corpuscular Volume 101.4 H Mean Corpuscular Hemoglobin 35.1 H Mean Corpuscular Hemoglobin Concent 34.6 Red Cell Distribution Width 11.7 Platelet Count 215 Mean Platelet Volume 9.9 Neutrophils % 49.7 Lymphocytes % 37.8 Monocytes % 4.3 Eosinophils % 7.3 H Basophils % 0.7 Nucleated Red Blood Cells % 0.0 Neutrophils # 2.9 Lymphocytes # 2.2 Monocytes # 0.3 Eosinophils # 0.4 Basophils # 0.0 Nucleated Red Blood Cells # 0.0 Sodium Level 141 Potassium Level 4.1 Chloride Level 115 H Carbon Dioxide Level 25 Anion Gap 5 L Blood Urea Nitrogen 15 # Creatinine 0.79 Glucose Level 82 Calcium Level 8.4 Phosphorus Level 2.5 Magnesium Level 1.8 Vitamin D 1,25-Dihydroxy 36.3 Random Cortisol 8.9 Medications Medications Current Medications Sodium Chloride (NS) 1,000 ml @ 100 mls/hr Q10H IV Last administered on 06:15; Admin Dose 100 MLS/HR; Start 08/30/17 at 23:36 Ondansetron HCl (Zofran Inj) 4 mg Q6H PRN IV NAUSEA AND/OR VOMITING; Start 08/31/17 at 00:00 Acetaminophen (Tylenol Tab) 650 mg Q6H PRN PO PAIN LEVEL 1-3 OR FEVER; Start 08/31/17 at 00:00 Famotidine 20 mg 20 mg DAILY PO Last administered on 09/01/17 09:18; Admin Dose 20 MG; Start 08/31/17 at 09:00 Ceftriaxone Sodium (Rocephin) 50 ml @ 100 mls/hr Q24H IVPB Last administered on 09/01/17 01:06; Admin Dose 100 MLS/HR; Start 08/31/17 at 00:00 Nicotine 1 patch 1 patch DAILY TRANSDERM Last administered on 09/01/17 09:18; Admin Dose 1 PATCH; Start 08/31/17 at 09:00 Metronidazole (Flagyl 500 Mg (Pmx)) 100 ml @ 100 mls/hr Q8 IVPB Last administered on 09/01/17 05:19; Admin Dose 100 MLS/HR; Start 08/31/17 at 14:00 DALLAS ACRTER DO Sep 01, 2017 10:52
--- NOTE | 2017-09-01 12:25 | PN ---
Date/Time of Note Date/Time of Note DATE: 09/01/17 TIME: 12:24 Assessment/Plan VTE Prophylaxis VTE Prophylaxis Intervention: SCD's Lines/Catheters IV Catheter Type (from [facility]): Peripheral IV Assessment/Plan Chief Complaint/Hosp Course 1. Acute nonoliguric kidney injury. Most probably secondary to hemodynamics. The patient's hydrochlorothiazide has been discontinued. The patient's renal function is improving. Nephrology following. 2. Chronic unexplained diarrhea. Etiology unclear. Stool for C. difficile negative. The patient was evaluated by gastroenterology. The patient is scheduled for esophagogastroduodenoscopy and colonoscopy. 3. History of essential hypertension with current episode of hypotension. The patient's antihypertensives are on hold at this time. Cortisol level within normal limits. 4. Macrocytic anemia. Will obtain a folate and vitamin B12 level. 5. Fluids, electrolytes, and nutrition. Full liquid diet. 6. DVT prophylaxis. Bilateral sequential compression devices. 7. Plan. Continue current management. Await esophagogastroduodenoscopy and colonoscopy. Case discussed with Dr. Solano. Problems: Subjective 24 Hr Interval Summary Free Text/Dictation Patient remains afebrile. Blood pressure still on the lower side. Continues to have diarrhea. Exam/Review of Systems Vital Signs Vitals Vital Signs Date Time Temp Pulse Resp B/P Pulse Ox O2 Delivery O2 Flow Rate FiO2 09/01/17 08:09 98.0 65 20 109/53 100 08/31/17 14:30 Room Air Intake and Output 08/31/17 08/31/17 09/01/17 15:00 23:00 07:00 Intake Total 700 ml 1206 ml 1750 ml Output Total 1200 ml 900 ml Balance 700 ml 6 ml 850 ml Exam General: Adequately build 57 year-old female lying in bed in no apparent distress. HEENT: Normocephalic, atraumatic. Eyes: Anicteric sclerae, conjunctivae clear. ENT: Nasal septum midline, oral mucosa moist. Neck supple, no JVD noticed. Respiratory: Bilaterally clear breath sounds. No use of accessory muscles of respiration. No adventitious breath sounds. Cardiovascular: S1, S2 heard. No murmurs or gallops. Abdomen: Soft, nontender, and nondistended. Bowel sounds positive in all 4 quadrants. Genitourinary: Deferred. Extremities: No cyanosis, no clubbing, no edema. Peripheral pulses palpable. Neurologic: Cranial nerves II through XII grossly intact. The patient is awake, alert, and oriented. Skin: Normal skin turgor. No skin rashes. Results Result Diagram: 09/01/17 0434 09/01/17 0434 Results 24 hrs Laboratory Tests Test 08/31/17 13:30 08/31/17 14:00 09/01/17 04:34 Urine Random Creatinine 51.54 Urine Total Protein 12.0 H White Blood Count 5.8 Red Blood Count 2.76 L Hemoglobin 9.7 L Hematocrit 28.0 L Mean Corpuscular Volume 101.4 H Mean Corpuscular Hemoglobin 35.1 H Mean Corpuscular Hemoglobin Concent 34.6 Red Cell Distribution Width 11.7 Platelet Count 215 Mean Platelet Volume 9.9 Neutrophils % 49.7 Lymphocytes % 37.8 Monocytes % 4.3 Eosinophils % 7.3 H Basophils % 0.7 Nucleated Red Blood Cells % 0.0 Neutrophils # 2.9 Lymphocytes # 2.2 Monocytes # 0.3 Eosinophils # 0.4 Basophils # 0.0 Nucleated Red Blood Cells # 0.0 Sodium Level 141 Potassium Level 4.1 Chloride Level 115 H Carbon Dioxide Level 25 Anion Gap 5 L Blood Urea Nitrogen 15 # Creatinine 0.79 Glucose Level 82 Calcium Level 8.4 Phosphorus Level 2.5 Magnesium Level 1.8 Vitamin D 1,25-Dihydroxy 36.3 Random Cortisol 8.9 Medications Medications Current Medications Sodium Chloride (NS) 1,000 ml @ 100 mls/hr Q10H IV Last administered on 06:15; Admin Dose 100 MLS/HR; Start 08/30/17 at 23:36 Ondansetron HCl (Zofran Inj) 4 mg Q6H PRN IV NAUSEA AND/OR VOMITING; Start 08/31/17 at 00:00 Acetaminophen (Tylenol Tab) 650 mg Q6H PRN PO PAIN LEVEL 1-3 OR FEVER; Start 08/31/17 at 00:00 Famotidine (Pepcid) 20 mg DAILY PO Last administered on 09/01/17 09:18; Admin Dose 20 MG; Start 08/31/17 at 09:00 Nicotine (Nicoderm 14 Mg/ 24hr) 1 patch DAILY TRANSDERM Last administered on 09:18; Admin Dose 1 PATCH; Start 08/31/17 at 09:00 LIGIA HODGE NP Sep 01, 2017 12:25
[2017-09-01 13:48] VITALS: BP 119/51; RESP 18
--- NOTE | 2017-09-01 15:17 | PN ---
Date/Time of Note Date/Time of Note DATE: 09/01/17 TIME: 15:15 Assessment/Plan VTE Prophylaxis VTE Prophylaxis Intervention: SCD's Lines/Catheters IV Catheter Type (from [facility]): Peripheral IV Assessment/Plan Chief Complaint/Hosp Course Assessment: Assessment: * Chronic unexplained diarrhea * Chronic dyspepsia/nausea and vomiting * Severe dehydration * Acute renal failure/prerenal azotemia * Hypertension * Moderate anemia likely multifactorial * Rule out GI bleeding/no overt GI bleeding Plan: * Continue present regimen * Review stool studies * Endoscopy and colonoscopy on Saturday. * Patient informed of procedures including risks, benefits and alternatives. Agreeable to proceed. Subjective: Course reviewed with nursing staff Patient interviewed and examined All labs, imaging and other results reviewed The patient will having diarrhea otherwise feeling well We will initiate preparation for colonoscopy Plan for EGD and colonoscopy tomorrow afternoon Patient informed procedure including risks, benefits alternatives. Agreeable to proceed Exam: General: well developed, well nourished, alert and oriented x3 , in no acute distress Skin: No lesions, no stigmata chronic liver disease, no evidence of bleeding diathesis Lymphatic: No palpable lymphadenopathy HEENT: No lesions Cardiovascular: Heart: Regular rate and rhythm, no murmurs, gallops or rubs. Peripheral pulses present within normal limits, no cyanosis, clubbing or edemas. No pulsatile abdominal mass Respiratory: Lungs clear to auscultation and percussion, no wheezing, no rubs Gastrointestinal and Liver: Abdomen: Soft, non tenderness, not distended, no hernias, no masses, no organomegaly, no ascites, no guarding, no rebound tenderness, normoactive bowel sounds. Extremities: No cyanosis, clubbing, or edema. Diagnostic Studies: Available data and images were reviewed personally. See reports. Significant results and findings are addressed here or in the assessment and plan. Problems: Exam/Review of Systems Vital Signs Vitals Vital Signs Date Time Temp Pulse Resp B/P Pulse Ox O2 Delivery O2 Flow Rate FiO2 09/01/17 13:48 98.3 65 18 119/51 100 08/31/17 14:30 Room Air Intake and Output 08/31/17 08/31/17 09/01/17 15:00 23:00 07:00 Intake Total 700 ml 1206 ml 1750 ml Output Total 1200 ml 900 ml Balance 700 ml 6 ml 850 ml Results Result Diagram: 09/01/17 0434 09/01/17 0434 Results 24 hrs Laboratory Tests Test 09/01/17 04:34 White Blood Count 5.8 Red Blood Count 2.76 L Hemoglobin 9.7 L Hematocrit 28.0 L Mean Corpuscular Volume 101.4 H Mean Corpuscular Hemoglobin 35.1 H Mean Corpuscular Hemoglobin Concent 34.6 Red Cell Distribution Width 11.7 Platelet Count 215 Mean Platelet Volume 9.9 Neutrophils % 49.7 Lymphocytes % 37.8 Monocytes % 4.3 Eosinophils % 7.3 H Basophils % 0.7 Nucleated Red Blood Cells % 0.0 Neutrophils # 2.9 Lymphocytes # 2.2 Monocytes # 0.3 Eosinophils # 0.4 Basophils # 0.0 Nucleated Red Blood Cells # 0.0 Sodium Level 141 Potassium Level 4.1 Chloride Level 115 H Carbon Dioxide Level 25 Anion Gap 5 L Blood Urea Nitrogen 15 # Creatinine 0.79 Glucose Level 82 Calcium Level 8.4 Phosphorus Level 2.5 Magnesium Level 1.8 Vitamin D 1,25-Dihydroxy 36.3 Random Cortisol 8.9 Medications Medications Current Medications Sodium Chloride (NS) 1,000 ml @ 100 mls/hr Q10H IV Last administered on 06:15; Admin Dose 100 MLS/HR; Start 08/30/17 at 23:36 Ondansetron HCl (Zofran Inj) 4 mg Q6H PRN IV NAUSEA AND/OR VOMITING; Start 08/31/17 at 00:00 Acetaminophen (Tylenol Tab) 650 mg Q6H PRN PO PAIN LEVEL 1-3 OR FEVER; Start 08/31/17 at 00:00 Famotidine (Pepcid) 20 mg DAILY PO Last administered on 09/01/17 09:18; Admin Dose 20 MG; Start 08/31/17 at 09:00 Nicotine (Nicoderm 14 Mg/ 24hr) 1 patch DAILY TRANSDERM Last administered on 09:18; Admin Dose 1 PATCH; Start 08/31/17 at 09:00 CHUCK MORALES MD Sep 01, 2017 15:17
[2017-09-01] MEDS ORDERED: BISACODYL (EC) 5 MG TAB PO ONE (15:30)
[2017-09-01] MEDS ORDERED: MAGNESIUM CITRATE 300 ML BTL PO ONE (17:30)
[2017-09-01] MEDS ORDERED: POLYETHYLENE GLYCOL 3350 119 GM POWDER PO ONE (18:30)
[2017-09-01 19:46] VITALS: BP 109/53; RESP 16
[2017-09-02] VITALS (18 sets, daily range): BP systolic 110–142; BP diastolic 42–75; PULSE 50–67; RESP 12–20
[2017-09-02] MEDS: SOD CHLORIDE 0.9% 1,000 ML IV SCH ×3 (03:32→14:39)
[2017-09-02 05:10] LABS: BASOPHILS % 0.6 % (0.0-2.0); EOSINOPHILS # 0.4 10^3/ul (0.0-0.5); EOSINOPHILS % 6.1 % (0.0-7.0); HEMOGLOBIN 9.3 g/dl (12.0-16.0); LYMPHOCYTES # 2.4 10^3/ul (0.8-2.9); LYMPHOCYTES % 36.9 % (15.0-51.0); MEAN CORPUSCULAR HEMOGLOBIN 34.1 pg (29.0-33.0); MEAN CORPUSCULAR HGB CONC 34.4 g/dl (32.0-37.0); MEAN CORPUSCULAR VOLUME 98.9 fl (82.0-101.0); MEAN PLATELET VOLUME 9.8 fl (7.4-10.4); MONOCYTE # 0.3 10^3/ul (0.3-0.9); MONOCYTES % 5.2 % (0.0-11.0); NEUTROPHIL # 3.4 10^3/ul (1.6-7.5); PLATELET COUNT 206 10^3/UL (140-415); RED BLOOD COUNT 2.73 10^6/ul (4.20-5.40); RED CELL DISTRIBUTION WIDTH 11.7 % (11.5-14.5); WHITE BLOOD COUNT 6.6 10^3/ul (4.8-10.8)
[2017-09-02 05:19] LABS: MAGNESIUM 1.6 mg/dl (1.7-2.5); PHOSPHORUS 2.6 mg/dl (2.5-4.9)
[2017-09-02 05:22] LABS: ALBUMIN 3.1 g/dl (3.3-4.9); ALBUMIN/GLOBULIN RATIO 1.19; BILIRUBIN,INDIRECT 0.6 mg/dl (0-1.1); BILIRUBIN,TOTAL 0.6 mg/dl (0.2-1.3); CALCIUM 8.2 mg/dl (8.4-10.2); CREATININE 0.75 mg/dl (0.44-1.00); TOTAL PROTEIN 5.7 g/dl (6.1-8.1)
[2017-09-02] MEDS ORDERED: POLYETHYLENE GLYCOL 3350 119 GM POWDER PO ONE (06:00)
[2017-09-02] MEDS ORDERED: BISACODYL (EC) 5 MG TAB PO ONE (08:00)
[2017-09-02] MEDS: NICOTINE (14 MG/24 HR) PATCH TRANSDERM SCH (08:35)
[2017-09-02] MEDS: FAMOTIDINE 20 MG TAB PO SCH (08:35)
[2017-09-02] MEDS ORDERED: VITAMIN A & D 5 GM OINT PACKET TOP ONE (14:41)
--- NOTE | 2017-09-02 15:17 | PN ---
Date/Time of Note Date/Time of Note DATE: 09/02/17 TIME: 15:17 Assessment/Plan VTE Prophylaxis VTE Prophylaxis Intervention: other Lines/Catheters IV [facility] Type [facility] Peripheral IV Urinary Cath still in place: No Assessment/Plan Chief Complaint/Hosp Course nephrology follow up all noted good uop since admission ARF is resolving BP at target off HCTZ no nausea, vomiting,rash, hematuria or melena General: Patient is well-developed well-nourished The patient is alert oriented -3 lying comfortably in bed. HEENT: Dry mucous membranes, atraumatic, normocephalic. The pupils are equal, round and reactive. Extraocular motor are intact Neck: Supple with full range of motion. No rigidity or meningismus Chest: Nontender Lungs: Clear to auscultation bilaterally no crackles rales or wheezing Heart: Normal S1-S2, Regular rhythm and rate. No murmur, S3, or S4 Abdomen: Soft, nondistended, tender to palpation at the region above the umbilicus, normal bowel sounds, no rebound tenderness Extremities: Normal to inspection, no edema no cyanosis Neurologic: Normal mental status, speech normal, cranial nerves II through XII are intact, motor and sensory are intact, no focal weakness This is a 57 year old female being admitted to the telemetry floor for: #1 Acute renal failure: due to intravascular volume depletion due to hctz and diarrhea, She has good uop with ivf. will continue. Some proteinuria noted on her UA however she has uti and therefore urine studies are not reliable. ARF is resolving. continue volume expansion. no need to resume HCTZ #2 Hypotension: secondary to dehydration from chronic diarrhea vs. UTI. #3 Chronic Diarrhea #4 HTN: currently hypotensive, will hold HCTZ at this time. #5 Normocytic anemia: will check iron studies. Denies any bleeding. Will check fecal occult stool #6 UTI: ceftriaxone 1 gm IV q 24hrs #7 Dvt and GI prophylaxis. scds, acid pamela Problems: Exam/Review of Systems Vital Signs Vitals Vital Signs Date Time Temp Pulse Resp B/P Pulse Ox O2 Delivery O2 Flow Rate FiO2 09/02/17 08:12 98.2 60 20 126/58 100 08/31/17 14:30 Room Air Intake and Output 09/01/17 09/01/17 09/02/17 15:00 23:00 07:00 Intake Total 1700 ml 1950 ml Output Total 1100 ml 1400 ml Balance 600 ml 550 ml Results Result Diagram: 09/02/177 09/02/177 Results 24 hrs Laboratory Tests Test 09/02/17 04:27 White Blood Count 6.6 Red Blood Count 2.73 L Hemoglobin 9.3 L Hematocrit 27.0 L Mean Corpuscular Volume 98.9 Mean Corpuscular Hemoglobin 34.1 H Mean Corpuscular Hemoglobin Concent 34.4 Red Cell Distribution Width 11.7 Platelet Count 206 Mean Platelet Volume 9.8 Neutrophils % 51.0 Lymphocytes % 36.9 Monocytes % 5.2 Eosinophils % 6.1 Basophils % 0.6 Nucleated Red Blood Cells % 0.0 Neutrophils # 3.4 Lymphocytes # 2.4 Monocytes # 0.3 Eosinophils # 0.4 Basophils # 0.0 Nucleated Red Blood Cells # 0.0 Sodium Level 142 Potassium Level 4.0 Chloride Level 112 H Carbon Dioxide Level 25 Anion Gap 9 Blood Urea Nitrogen 5 #L Creatinine 0.75 Glucose Level 83 Calcium Level 8.2 L Phosphorus Level 2.6 Magnesium Level 1.6 L Total Bilirubin 0.6 Direct Bilirubin 0.00 Indirect Bilirubin 0.6 Aspartate Amino Transf (AST/SGOT) 15 Alanine Aminotransferase (ALT/SGPT) 26 Alkaline Phosphatase 38 L Total Protein 5.7 L Albumin 3.1 L Globulin 2.60 Albumin/Globulin Ratio 1.19 Medications Medications Current Medications Sodium Chloride (NS) 1,000 ml @ 100 mls/hr Q10H IV Last administered on 14:39; Admin Dose 100 MLS/HR; Start 08/30/17 at 23:36 Ondansetron HCl (Zofran Inj) 4 mg Q6H PRN IV NAUSEA AND/OR VOMITING; Start 08/31/17 at 00:00 Acetaminophen (Tylenol Tab) 650 mg Q6H PRN PO PAIN LEVEL 1-3 OR FEVER; Start 08/31/17 at 00:00 Famotidine (Pepcid) 20 mg DAILY PO Last administered on 09/02/17 08:35; Admin Dose 20 MG; Start 08/31/17 at 09:00 Nicotine (Nicoderm 14 Mg/ 24hr) 1 patch DAILY TRANSDERM Last administered on 08:35; Admin Dose 1 PATCH; Start 08/31/17 at 09:00 DALLAS CARTER DO Sep 02, 2017 15:17
[2017-09-02 15:21] LABS: CREATININE, RANDOM URINE 62 mg/dL (20-320); PROTEIN/CREATININE RATIO 177 mg/g creat (21-161)
--- NOTE | 2017-09-02 15:38 | PN ---
Date/Time of Note Date/Time of Note DATE: 09/02/17 TIME: 15:33 Assessment/Plan VTE Prophylaxis VTE Prophylaxis Intervention: SCD's Lines/Catheters [facility] ([facility]): Peripheral IV Urinary Cath still in place: No Assessment/Plan Chief Complaint/Hosp Course Assessment and plan 1. Acute nonoliguric kidney disease. Secondary to hemodynamics. Improved at present. Off hydrochlorothiazide at this time. Mental Health Unit Lead Psychologist following. Continue the conditions. 2. Chronic unexplained diarrhea. Stool C. difficile was negative. 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 Tentative plan for EGD and colonoscopy 3. Essential hypertension. Remained stable at present. Will monitor for now. 4. Anemia. Monitor H&H. Disposition plan: Tentative plan for EGD and colonoscopy. Discussed plan of care with Dr. Graff Problems: Subjective 24 Hr Interval Summary Free Text/Dictation no s/s of distress. no reports of pain Exam/Review of Systems Vital Signs Vitals Vital Signs Date Time Temp Pulse Resp B/P Pulse Ox O2 Delivery O2 Flow Rate FiO2 09/02/17 08:12 98.2 60 20 126/58 100 08/31/17 14:30 Room Air Intake and Output 09/01/17 09/01/17 09/02/17 15:00 23:00 07:00 Intake Total 1700 ml 1950 ml Output Total 1100 ml 1400 ml Balance 600 ml 550 ml Exam Constitutional: alert, oriented Psych: nl mood/affect Head: normocephalic Respiratory: clear to auscultation, normal air movement Cardiovascular: regular rate and rhythm Gastrointestinal: non-tender, soft Musculoskeletal: nl extremities to inspection, nl gait and stance Extremities: normal pulses Neurological: HUMAN RESOURCES SUPPORT SPECIALIST II-XII intact, nl mental status, nl speech Results Result Diagram: 09/02/1742609/02/17426 Results 24 hrs Laboratory Tests Test 09/02/17 04:27 White Blood Count 6.6 Red Blood Count 2.73 L Hemoglobin 9.3 L Hematocrit 27.0 L Mean Corpuscular Volume 98.9 Mean Corpuscular Hemoglobin 34.1 H Mean Corpuscular Hemoglobin Concent 34.4 Red Cell Distribution Width 11.7 Platelet Count 206 Mean Platelet Volume 9.8 Neutrophils % 51.0 Lymphocytes % 36.9 Monocytes % 5.2 Eosinophils % 6.1 Basophils % 0.6 Nucleated Red Blood Cells % 0.0 Neutrophils # 3.4 Lymphocytes # 2.4 Monocytes # 0.3 Eosinophils # 0.4 Basophils # 0.0 Nucleated Red Blood Cells # 0.0 Sodium Level 142 Potassium Level 4.0 Chloride Level 112 H Carbon Dioxide Level 25 Anion Gap 9 Blood Urea Nitrogen 5 #L Creatinine 0.75 Glucose Level 83 Calcium Level 8.2 L Phosphorus Level 2.6 Magnesium Level 1.6 L Total Bilirubin 0.6 Direct Bilirubin 0.00 Indirect Bilirubin 0.6 Aspartate Amino Transf (AST/SGOT) 15 Alanine Aminotransferase (ALT/SGPT) 26 Alkaline Phosphatase 38 L Total Protein 5.7 L Albumin 3.1 L Globulin 2.60 Albumin/Globulin Ratio 1.19 Medications Medications Current Medications Sodium Chloride (NS) 1,000 ml @ 100 mls/hr Q10H IV Last administered on 14:39; Admin Dose 100 MLS/HR; Start 08/30/17 at 23:36 Ondansetron HCl (Zofran Inj) 4 mg Q6H PRN IV NAUSEA AND/OR VOMITING; Start 08/31/17 at 00:00 Acetaminophen (Tylenol Tab) 650 mg Q6H PRN PO PAIN LEVEL 1-3 OR FEVER; Start 08/31/17 at 00:00 Famotidine (Pepcid) 20 mg DAILY PO Last administered on 09/02/17 08:35; Admin Dose 20 MG; Start 08/31/17 at 09:00 Nicotine 1 patch 1 patch DAILY TRANSDERM Last administered on 09/02/17 08:35; Admin Dose 1 PATCH; Start 08/31/17 at 09:00 Magnesium Sulfate (Magnesium Sulfate 2 Gm/50 ml) 50 ml @ 25 mls/hr ONCE ONCE IVPB ; Start 09/02/17 at 17:00; Stop 09/02/17 at 18:59 BARI FRASER Sep 02, 2017 15:38
[2017-09-02] MEDS ORDERED: MAGNESIUM SULFATE 2 GM/50 ML 50 ML IVPB ONE (17:00)
[2017-09-02] MEDS ORDERED: PROPOFOL 40 ML ONE (18:55)
--- NOTE | 2017-09-02 19:49 | OPPN ---
Date/Time of Note Date/Time of Note DATE: 09/02/17 TIME: 19:38 Proc Note GI Procedure Date 09/02/17 Pre-procedure Diagnosis * Chronic diarrhea Post-procedure Diagnosis Impression: * Normal colonic mucosa to cecum. Biopsies obtained to rule out microscopic, lymphocytic or collagenous colitis. * Normal terminal ileum * Moderate-sized internal hemorrhoids Plan: * Review pathology as soon as available * Lactose-free high-fiber diet * Imodium as needed to control diarrhea * Screening colonoscopy in 10 years . Procedure Performed: Other (Colonoscopy with biopsies) Surgeon CHUCK MORALES MD Ramp Agent none Anesthesia Type: MAC Anesthesiologist: YUE MACHADO Tourniquet Time none EBL none Transfusion required none Biopsy 1: Right colon Biopsy 2: Left colon Grafts/Implants none Tubes/Drains none Complication(s) none Pt Condition post procedure: stable Disposition: PACU Indications: other (Diarrhea) Procedure Description After informed consent, with the patient/relatives understanding the procedure, its indications and potential risks and complications, including but not limited to: Allergic reaction, bleeding, perforation, infection, and after all pertinent questions were answered to the patient's satisfaction, the patient/ relatives signed the witnessed informed consent. Following this, premedication was administered slowly IV push under careful cardiovascular and respiratory monitoring with pulse OXIMETRY, automatic blood pressure, and monitoring analyst. Once the sedative effect was achieved, the patient was placed in the left lateral decubitus position, digital rectal examination was performed. The colonoscope was then introduced and advanced under visual control throughout all segments of the colon including: []the rectum, sigmoid, descending colon, splenic flexure, transverse colon, hepatic flexure, ascending colon and finally reaching the cecum which was clearly identified by transillumination, finger indentation and the ileocecal valve. Terminal ileum was entered and examined. Careful examination of the mucosa of the lower gastrointestinal tract both on insertion as well as withdrawal of the instrument disclosed the following findings: PREPARATION QUALITY: [Adequate], RECTAL EXAM: The anorectal area was visualized examined and digital rectal examination performed with the following findings: No evidence of perirectal disease, no masses. COLONIC MUCOSA: The mucosa of all segments of the colon was carefully examined and showed the following findings: the examined mucosa appears within normal limits. There is no evidence of inflammatory changes, diverticular formation, polyps or other neoplasms, vascular malformation, or any other abnormality. Random biopsies were obtained of the right and the left side of the colon. Moderate-sized internal hemorrhoids The instrument was then withdrawn, the patient tolerated the procedure well and was transferred out of the Endoscopy Suite awake and in good condition to continue recovery under observation. Copies To: CC: CHUCK MORALES MD, MORDO MD Sep 02, 2017 19:49
--- NOTE | 2017-09-02 19:53 | OPPN ---
Date/Time of Note Date/Time of Note DATE: 09/02/17 TIME: 19:50 Proc Note GI Procedure Date 09/02/17 Pre-procedure Diagnosis * Nausea and vomiting Post-procedure Diagnosis Impression * Moderate distal esophagitis * Small hiatal hernia * Gastritis. Rule out H. pylori infection. Biopsies obtained * Otherwise normal EGD Plan: * Protonix 40 mg daily * Review pathology as soon as available * Advance diet as tolerated . Procedure Performed: Other (EGD with biopsies) Surgeon see signature line Inspector Finishing none Anesthesia Type: MAC Anesthesiologist: YUE MACHADO Tourniquet Time none EBL none Transfusion required none Biopsy 1: Gastric body and antrum/rule out H. pylori Grafts/Implants none Tubes/Drains none Complication(s) none Pt Condition post procedure: stable Disposition: PACU Indications: other (Nausea and vomiting) Procedure Description Preoperative Diagnosis: After informed consent, with the patient/relatives understanding the procedure, its indications, potential risks and complications, including but not limited to : allergic reaction, bleeding, perforation or infection, and after all pertinent questions were answered to the patients satisfaction, the patient/ relatives signed witnessed informed consent. Following this, premedication was administered slowly IV push under careful cardiovascular and respiratory monitoring with pulse oximetry, automatic blood pressure, and chain puller. Once the sedative effect was achieved the patient was place in the left lateral decubitus, the panendoscope was introduced and advanced under visual control. Careful examination of the upper gastrointestinal tract, both on insertion as well as withdrawal of the instrument disclosing the following findings: ESOPHAGUS: the mucosa of the entire esophagus was carefully examined and showed the following findings: There is moderate erythema and edema of the mucosa at the esophagogastric junction. Otherwise the mucosa appears within normal limits. There is no evidence of varices, neoplasm, or stricture. Small hiatal Hernia identified. STOMACH: Upon entrance to the stomach air was insufflated, the gastric alejandre distended normally. The mucosa of the fundus, body and antrum of the stomach was carefully examined both head-on and on retroflexion, and showed the following findings: There is moderate erythema and edema of the mucosa of the body and antrum of the stomach. Biopsies were obtained to rule out H. pylori infection. Otherwise the mucosa appears within normal limits with no abnormalities. There is no evidence of ulcers or neoplasm. PYLORUS: The pylorus was carefully examined and showed the following findings: the pylorus appears patent and within normal limits, with no evidence of gastric outlet obstruction. DUODENUM: The duodenal mucosa was carefully examined in the duodenal bulb as well as the second portion of the duodenum and showed the following findings: the mucosa appears unremarkable with no evidence of duodenitis, ulcer or neoplasm. Copies To: CC: CHUCK MORALES MD, MORDO MD Sep 02, 2017 19:53
[2017-09-02] MEDS ORDERED: LOPERAMIDE 2 MG CAP PO PRN (20:00)
[2017-09-03 00:15] VITALS: BP 103/55; PULSE 59; RESP 16
[2017-09-03 00:27] VITALS: BP 103/55; RESP 18
[2017-09-03] MEDS: SOD CHLORIDE 0.9% 1,000 ML IV SCH ×2 (04:42→17:17)
[2017-09-03 05:19] LABS: BASOPHILS % 0.4 % (0.0-2.0); EOSINOPHILS # 0.2 10^3/ul (0.0-0.5); EOSINOPHILS % 3.9 % (0.0-7.0); HEMATOCRIT 26.1 % (37.0-47.0); HEMOGLOBIN 9.2 g/dl (12.0-16.0); LYMPHOCYTES # 1.5 10^3/ul (0.8-2.9); MEAN CORPUSCULAR HEMOGLOBIN 35.1 pg (29.0-33.0); MEAN CORPUSCULAR HGB CONC 35.2 g/dl (32.0-37.0); MEAN CORPUSCULAR VOLUME 99.6 fl (82.0-101.0); MEAN PLATELET VOLUME 9.7 fl (7.4-10.4); MONOCYTE # 0.3 10^3/ul (0.3-0.9); MONOCYTES % 4.8 % (0.0-11.0); NEUTROPHIL # 3.7 10^3/ul (1.6-7.5); NEUTROPHILS % 64.7 % (39.0-77.0); PLATELET COUNT 186 10^3/UL (140-415); RED BLOOD COUNT 2.62 10^6/ul (4.20-5.40); RED CELL DISTRIBUTION WIDTH 11.4 % (11.5-14.5); WHITE BLOOD COUNT 5.7 10^3/ul (4.8-10.8)
[2017-09-03 05:51] LABS: CALCIUM 8.2 mg/dl (8.4-10.2); CREATININE 0.77 mg/dl (0.44-1.00); MAGNESIUM 1.8 mg/dl (1.7-2.5); POTASSIUM 3.9 mmol/L (3.5-5.1)
[2017-09-03] MEDS ORDERED: PANTOPRAZOLE (EC) 40 MG TAB PO SCH (06:00)
[2017-09-03] MEDS: NICOTINE (14 MG/24 HR) PATCH TRANSDERM SCH (08:26)
[2017-09-03 08:33] VITALS: BP 110/73; RESP 18
[2017-09-03] MEDS ORDERED: VITAMIN A & D 5 GM OINT PACKET TOP ONE (13:02)
[2017-09-03] MEDS ORDERED: IMO2 PO (14:02)
[2017-09-03] MEDS ORDERED: PANT40TA4 PO (14:06)
--- NOTE | 2017-09-03 15:09 | PDOCDIS ---
Discharge Instructions DIAGNOSIS Discharge Diagnosis Secondary to hemodynamics. Improved at present. Off hydrochlorothiazide at this time. Waxing Machine Operator following. Continue the conditions. 2. Diarrhea. Suspect lactose intolerance 3. Essential hypertension. 4. Anemia. Monitor H&H. 5. Gastritis CONDITION Patient Condition: Stable HOME CARE INSTRUCTIONS: Special Diet: CLEAR LIQUIDS FOLLOW UP/APPOINTMENTS Follow-up Plan 1. Follow up with Dr. Horace Victor in one week BARI FRASER Sep 03, 2017 15:09
--- NOTE | 2017-09-03 15:25 | PDOCDIS ---
Discharge Instructions DIAGNOSIS Discharge Diagnosis 1. Acute nonoliguric kidney disease. 2. Chronic diarrhea. suspect lactose intolerance 3. Essential hypertension. 4. Anemia. 5. gastritis CONDITION Patient Condition: Stable HOME CARE INSTRUCTIONS: Special Diet: CLEAR LIQUIDS FOLLOW UP/APPOINTMENTS Follow-up Plan 1. Follow up with Dr. Horace Victor in one week BARI FRASER Sep 03, 2017 15:25
[2017-09-03 16:13] VITALS: BP 118/56; RESP 16
--- NOTE | 2017-09-03 16:29 | PN ---
Date/Time of Note Date/Time of Note DATE: 09/03/17 TIME: 16:17 Assessment/Plan VTE Prophylaxis VTE Prophylaxis Intervention: ambulation Lines/Catheters IV [facility] Type [facility]from [facility] Peripheral IV Urinary Cath still in place: No Assessment/Plan Chief Complaint/Hosp Course Assessment: * Chronic unexplained diarrhea * Colonoscopy 09/02/17 * Normal colonic mucosa to cecum. Biopsies obtained to rule out microscopic, lymphocytic or collagenous colitis. * Normal terminal ileum * Moderate-sized internal hemorrhoids * Chronic dyspepsia/nausea and vomiting * EGD 09/02/17 * Moderate distal esophagitis * Small hiatal hernia * Gastritis. Rule out H. pylori infection. Biopsies obtained * Otherwise normal EGD * Severe dehydration- improved * Acute renal failure/prerenal azotemia * Hypertension * Moderate anemia likely multifactorial * Rule out GI bleeding- none identified with EGD/colonoscopy Plan: * Continue lactose free diet * Continue PPI * Borderline macrocytic anemia- should follow up with work-up as an out-patient * Following patient in collaboration with Dr. Victor Subjective: Course reviewed with nursing staff Patient interviewed and examined All labs, imaging and other results reviewed The patient states she is feeling much better i.e. has more energy Denies any further episodes of diarrhea, no complains of nausea, vomiting, or abd pain Ok to d/c for GI point of view Exam: General: well developed, well nourished, alert and oriented x3 , in no acute distress Skin: No lesions, no stigmata chronic liver disease, no evidence of bleeding diathesis Lymphatic: No palpable lymphadenopathy HEENT: No lesions Cardiovascular: Heart: Regular rate and rhythm, no murmurs, gallops or rubs. Peripheral pulses present within normal limits, no cyanosis, clubbing or edemas. No pulsatile abdominal mass Respiratory: Lungs clear to auscultation and percussion, no wheezing, no rubs Gastrointestinal and Liver: Abdomen: Soft, non tenderness, not distended, no hernias, no masses, no organomegaly, no ascites, no guarding, no rebound tenderness, normoactive bowel sounds. Extremities: No cyanosis, clubbing, or edema. Diagnostic Studies: Available data and images were reviewed personally. See reports. Significant results and findings are addressed here or in the assessment and plan. Problems: Exam/Review of Systems Vital Signs Vitals Vital Signs Date Time Temp Pulse Resp B/P Pulse Ox O2 Delivery O2 Flow Rate FiO2 09/03/17 16:13 98.1 68 16 118/56 98 09/03/17 00:15 Room Air Intake and Output 09/02/17 09/02/17 09/03/17 15:00 23:00 07:00 Intake Total 1000 ml 200 ml 1125 ml Balance 1000 ml 200 ml 1125 ml Results Result Diagram: 09/03/17 0441 09/03/17 0441 Results 24 hrs Laboratory Tests Test 09/03/17 04:41 White Blood Count 5.7 Red Blood Count 2.62 L Hemoglobin 9.2 L Hematocrit 26.1 L Mean Corpuscular Volume 99.6 Mean Corpuscular Hemoglobin 35.1 H Mean Corpuscular Hemoglobin Concent 35.2 Red Cell Distribution Width 11.4 L Platelet Count 186 Mean Platelet Volume 9.7 Neutrophils % 64.7 Lymphocytes % 26.0 Monocytes % 4.8 Eosinophils % 3.9 Basophils % 0.4 Nucleated Red Blood Cells % 0.0 Neutrophils # 3.7 Lymphocytes # 1.5 Monocytes # 0.3 Eosinophils # 0.2 Basophils # 0.0 Nucleated Red Blood Cells # 0.0 Sodium Level 140 Potassium Level 3.9 Chloride Level 113 H Carbon Dioxide Level 26 Anion Gap 5 L Blood Urea Nitrogen 4 L Creatinine 0.77 Glucose Level 86 Calcium Level 8.2 L Magnesium Level 1.8 Medications Medications Current Medications Sodium Chloride (NS) 1,000 ml @ 100 mls/hr Q10H IV Last administered on 04:42; Admin Dose 100 MLS/HR; Start 08/30/17 at 23:36 Ondansetron HCl (Zofran Inj) 4 mg Q6H PRN IV NAUSEA AND/OR VOMITING; Start 08/31/17 at 00:00 Acetaminophen (Tylenol Tab) 650 mg Q6H PRN PO PAIN LEVEL 1-3 OR FEVER; Start 08/31/17 at 00:00 Nicotine (Nicoderm 14 Mg/ 24hr) 1 patch DAILY TRANSDERM Last administered on 08:26; Admin Dose 1 PATCH; Start 08/31/17 at 09:00 Pantoprazole (Protonix Tab) 40 mg DAILY@06 PO Last administered on 09/03/17 05:32; Admin Dose 40 MG; Start 09/03/17 at 06:00 Loperamide HCl (Imodium Cap) 2 mg QID PRN PO DIARRHEA; Start 09/02/17 at 20:00 GRZEGORZ WEBB Sep 03, 2017 16:28
--- NOTE | 2017-09-03 16:52 | CONS ---
Date/Time of Note Date/Time of Note DATE: 09/03/17 TIME: 16:50 Consult Date/Type/Reason Admit Date/Time Aug 30, 2017 at 22:38 Initial Consult Date 08/31/17 Type of Consultation: neph Subjective all noted good uop since admission ARF is resolved BP at target off HCTZ no nausea, vomiting,rash, hematuria or melena General: Patient is well-developed well-nourished The patient is alert oriented -3 lying comfortably in bed. HEENT: Dry mucous membranes, atraumatic, normocephalic. The pupils are equal, round and reactive. Extraocular motor are intact Neck: Supple with full range of motion. No rigidity or meningismus Chest: Nontender Lungs: Clear to auscultation bilaterally no crackles rales or wheezing Heart: Normal S1-S2, Regular rhythm and rate. No murmur, S3, or S4 Abdomen: Soft, nondistended, tender to palpation at the region above the umbilicus, normal bowel sounds, no rebound tenderness Extremities: Normal to inspection, no edema no cyanosis Neurologic: Normal mental status, speech normal, cranial nerves II through XII are intact, motor and sensory are intact, no focal weakness Objective Vital Signs Date Time Temp Pulse Resp B/P Pulse Ox O2 Delivery O2 Flow Rate FiO2 09/03/17 16:13 98.1 68 16 118/56 98 09/03/17 00:15 Room Air Intake and Output 09/02/17 09/02/17 09/03/17 15:00 23:00 07:00 Intake Total 1000 ml 200 ml 1125 ml Balance 1000 ml 200 ml 1125 ml Results/Medications Result Diagram: 09/03/17 0441 09/03/17 0441 Results 24 hrs Laboratory Tests Test 09/03/17 04:41 White Blood Count 5.7 Red Blood Count 2.62 L Hemoglobin 9.2 L Hematocrit 26.1 L Mean Corpuscular Volume 99.6 Mean Corpuscular Hemoglobin 35.1 H Mean Corpuscular Hemoglobin Concent 35.2 Red Cell Distribution Width 11.4 L Platelet Count 186 Mean Platelet Volume 9.7 Neutrophils % 64.7 Lymphocytes % 26.0 Monocytes % 4.8 Eosinophils % 3.9 Basophils % 0.4 Nucleated Red Blood Cells % 0.0 Neutrophils # 3.7 Lymphocytes # 1.5 Monocytes # 0.3 Eosinophils # 0.2 Basophils # 0.0 Nucleated Red Blood Cells # 0.0 Sodium Level 140 Potassium Level 3.9 Chloride Level 113 H Carbon Dioxide Level 26 Anion Gap 5 L Blood Urea Nitrogen 4 L Creatinine 0.77 Glucose Level 86 Calcium Level 8.2 L Magnesium Level 1.8 Medications Current Medications Sodium Chloride (NS) 1,000 ml @ 100 mls/hr Q10H IV Last administered on 04:42; Admin Dose 100 MLS/HR; Start 08/30/17 at 23:36 Ondansetron HCl (Zofran Inj) 4 mg Q6H PRN IV NAUSEA AND/OR VOMITING; Start 08/31/17 at 00:00 Acetaminophen (Tylenol Tab) 650 mg Q6H PRN PO PAIN LEVEL 1-3 OR FEVER; Start 08/31/17 at 00:00 Nicotine (Nicoderm 14 Mg/ 24hr) 1 patch DAILY TRANSDERM Last administered on 08:26; Admin Dose 1 PATCH; Start 08/31/17 at 09:00 Pantoprazole (Protonix Tab) 40 mg DAILY@06 PO Last administered on 09/03/17 05:32; Admin Dose 40 MG; Start 09/03/17 at 06:00 Loperamide HCl (Imodium Cap) 2 mg QID PRN PO DIARRHEA; Start 09/02/17 at 20:00 Assessment/Plan Chief Complaint/Hosp Course #1 Acute renal failure: due to intravascular volume depletion due to hctz and diarrhea, She has good uop. Some proteinuria noted on her UA however she has uti and therefore urine studies are not reliable. ARF is resolving. sp volume expansion. no need to resume HCTZ. ok to discharge #2 Hypotension: secondary to dehydration from chronic diarrhea vs. UTI. #3 Chronic Diarrhea #4 HTN: currently hypotensive, will hold HCTZ at this time. #5 Normocytic anemia: will check iron studies. Denies any bleeding. Will check fecal occult stool #6 UTI: ceftriaxone 1 gm IV q 24hrs #7 Dvt and GI prophylaxis. scds, acid blocke Problems: ALBERTO CAIN MD Sep 03, 2017 16:52
[2017-09-03 21:38] LABS: PTH CALCIUM 8.8 mg/dL (8.6-10.4)
[2017-09-04 09:41] LABS: PTH INTACT 46 pg/mL (14-64)
== END 2017-09-03 17:40 | disposition home or self-care (01) | DRG 683 ==
LOC: E/R 18:53 → MS1 22:38
PROVIDERS: ADMIT Family Medicine; ATTEND Family Medicine
PROC: 3E0234Z Introduction of Serum, Toxoid and Vaccine into Muscle, Percutaneous Approach (ICD-10-PCS; 2017-09-01)
PROC: 0DB68ZX Excision of Stomach, Via Natural or Artificial Opening Endoscopic, Diagnostic (ICD-10-PCS; 2017-09-02)
PROC: 0DBG8ZX Excision of Left Large Intestine, Via Natural or Artificial Opening Endoscopic, Diagnostic (ICD-10-PCS; principal; 2017-09-02 19:00)
PROC: 0DBF8ZX Excision of Right Large Intestine, Via Natural or Artificial Opening Endoscopic, Diagnostic (ICD-10-PCS; 2017-09-02 19:00)
DX: N17.9 Acute kidney failure, unspecified (principal); N39.0 Urinary tract infection, site not specified; I10 Essential (primary) hypertension; E86.0 Dehydration; F17.210 Nicotine dependence, cigarettes, uncomplicated; R19.7 Diarrhea, unspecified; D53.9 Nutritional anemia, unspecified; K64.8 Other hemorrhoids; K20.9 Esophagitis, unspecified; K44.9 Diaphragmatic hernia without obstruction or gangrene; K29.70 Gastritis, unspecified, without bleeding; Z23 Encounter for immunization
CPT/HCPCS: 36415; 70450; 71010; 74010; 76775; 80048; 80053; 80061; 80307; 81001; 81003; 82270; 82306; 82533; 82570; 82607; 82652; 82746; 83036; 83540; 83605; 83690; 83735; 83935; 83970; 84100; 84155; 84156; 84166; 84300; 84443; 84484; 85025; 85610; 85730; 86674; 87045; 87075; 87086; 87177; 87205; 88305; 88312; 90686; 93005; 96365; J0696; J3475; J7030

== ENCOUNTER 2017-10-07 08:25 | Emergency (ER) | payer OTHER ==
[~2017-10-07] VITALS: Ht 157.5 cm; Wt 70.4 kg
[~2017-10-07 08:25] MED LIST: CYCL5TAB PO; IMO2 PO; PANT40TA4 PO
[2017-10-07 08:30] VITALS: Ht 157.5 cm; Wt 70.4 kg
[2017-10-07] MEDS ORDERED: SODI126M NASAL (09:30)
[2017-10-07 09:36] VITALS: BP 127/65; PULSE 68; RESP 18
--- NOTE | 2017-10-07 09:46 | ERD ---
ER Documentation Chief Complaint Chief Complaint Pt presents with intermittent nosebleeds x3 days. Not bleeding. HPI 57-year-old female complaining of intermittent nosebleed for last 3 days. She had 2 3 episode of nosebleed for the last 3 days. Last night was the worst. She tried to stop her nosebleed by pinching the nose, but she was lying down at a time. She felt blood draining down her throat. Patient reports feeling itchy nose for several days prior to the onset of epistaxis. Denies any headache. Denies runny nose or nasal congestion. Denies chest pain, shortness of breath, or palpitations. Denies history of hypertension. ROS All systems reviewed and are negative except as per history of present illness. Medications Home Meds Active Scripts Sodium Chloride (Saline Nasal Mist) 126 Ml Mist, 2 SPRAY NASAL Q2H Y for NASAL CONGESTION, #1 BOTTLE Prov:NORMA GREGORIO. [employer] 10/07/17 Pantoprazole* (Pantoprazole*) 40 Mg Tablet.dr, 40 MG PO DAILY@06 for 30 Days, # 30 Prov:BARI FRASER 09/03/17 Loperamide Hcl* (Loperamide Hcl*) 2 Mg Cap, 2 MG PO QID Y for DIARRHEA, #30 CAP Prov:BARI FRASER 09/03/17 Reported Medications Cyclobenzaprine Hcl* (Cyclobenzaprine Hcl*) 5 Mg Tablet, 7.5 MG PO Q12 Y for MUSCLE SPASMS, #60 TAB 08/30/17 Allergies Allergies: Coded Allergies: No Known Allergy (Unverified , 08/30/17) PMhx/Soc History of Surgery: Yes (appendectomy, X2) Anesthesia Reaction: No Hx Neurological Disorder: No Hx Respiratory Disorders: No Hx Cardiac Disorders: Yes (htn) Hx Psychiatric Problems: No Hx Miscellaneous Medical Probl: No Hx Alcohol Use: No Hx Substance Use: No Hx Tobacco Use: Yes Smoking Status: Current some day smoker Physical Exam Vitals Vital Signs Date Time Temp Pulse Resp B/P Pulse Ox O2 Delivery O2 Flow Rate FiO2 10/07/17 09:36 68 18 127/65 99 Room Air 10/07/17 08:30 98.0 61 18 170/74 99 Physical Exam General: Well-developed, well-nourished, conscious and coherent, in no distress Skin: Warm and dry without rash, good texture and turgor Head: Normocephalic without evidence of trauma Eyes: Sclera and conjunctivae normal; pupils equal, round, and reactive to light; extraocular movements are intact Nose/Face: Nasal mucosa erythematous and swollen, no active bleeding present. Mouth/throat: Mucous membranes are moist. Posterior pharynx clear without erythema or exudates Neck: Supple without meningismus or adenopathy. Carotids are equal. Trachea midline. No bruits or JVD Chest: Normal AP diameter. Good expansion without retractions. Nontender. Lungs are clear to auscultate bilaterally with good tidal volume Heart: Regular rate and rhythm. No murmur, rub, or gallops heard Extremities: Full range of motion. Good strength bilaterally. No clubbing, cyanosis, or edema. Peripheral pulses are intact. Sensation intact Neuro: Alert and oriented 4, GCS 15. Cranial nerves grossly intact. Motor and sensory exams nonfocal. Moves all extremities. Speech clear. Gait normal Procedures/MDM Well-appearing 57-year-old female presents to ED with intermittent epistaxis for the last 3 days. I suspect the cause of her epistaxis was secondary to nasal allergies. Patient educated on methods to control the epistaxis. Patient 's blood pressure is 170/74 on presentation. Recheck her blood pressure is 127/ 65. I doubt malignant hypertension or hypertensive emergency. Patient does not have any active epistaxis at this time. Patient appears well, stable for discharge and outpatient management. Medical decision making shared with patient and family. Education provided to patient and family. Patient and family expressed understanding of the plan. Medications on discharge: Any nasal spray. Follow-up: Primary care provider in 2-3 days or return to ED if worse. Disclaimer: Inadvertent spelling and grammatical errors are likely due to EHR/ dictation software use and do not reflect on the overall quality of patient care. Also, please note that the electronic time recorded on this note does not necessarily reflect the actual time of the patient encounter. Departure Diagnosis: Primary Impression: Epistaxis Condition: Stable Patient Instructions: Epistaxis (Adult) Referrals: [facility] (PCP) Additional Instructions: Call your primary care doctor TOMORROW for an appointment during the next 2-3 days.See the doctor sooner or return here if your condition worsens before your appointment time. Please follow up with your primary provider for blood pressure check. NORMA GREGORIO NP Oct 07, 2017 09:46
== END 2017-10-07 10:07 | disposition home or self-care (01) ==
LOC: FTE 08:25
DX: R04.0 Epistaxis (principal)
CPT/HCPCS: 99283

== ENCOUNTER 2018-08-27 10:43 | Emergency (ER) | END 2018-08-27 14:28 | disposition home or self-care (01) ==